=== PATIENT | male | born 1965 | race Caucasian/White ===

== ENCOUNTER 2017-03-19 12:09 | Emergency (ER) | payer MEDICARE ==
[~2017-03-19 12:09] MED LIST: BACTROBAN22 GM TOP; CUBICIN; FLEXERIL10 MG PO; IBUPROFEN PO; LORTAB 10-5001 EACH PO; NICOTINE P1 PATCH .2 TD; NICOTINE TRANSD21 MG EXT; NO HOME MEDS; NO MEDICATIONS; ORUDIS75 M1 PO; PERCOCET 10/3251 TAB PO; PERCOCET 5-3251 TAB PO; PREDNISONE PO; PROBIOTIC250 MG PO; STOOL SOFTENER1 EAC1 PO; VANCOMYCIN HCL1 GM IV; WALGREENS PHARM
== END 2017-03-19 15:18 | disposition home or self-care (01) ==
LOC: CFTX 12:09 → CED 12:09 → CFTX 14:44
DX: M54.5 Low back pain (principal); G89.29 Other chronic pain; F17.210 Nicotine dependence, cigarettes, uncomplicated
CPT/HCPCS: 96372; 99283; J1885

== ENCOUNTER 2017-03-22 00:36 | Inpatient (IN) | payer MEDICARE ==
--- NOTE | ~2017-03-22 | CO ---
Unit #: [id number] #: [id number] Patient: MAX ROBERTSON JR [id number] [facility] [address] [facility]. [place], [place] [address] [id number] I MR#: [id number] NAME: MAX ROBERTSON JR ROOM: 331 Age: 51 Sex: M Admission Date: 03/22/2017 : 1965 Attending Physician: Syd Abebe M.D. Primary Care Physician: Primary Care Physician No Consultation Date: 03/31/2017 CONSULTATION REPORT DISCUSSION Mr. Max Robertson is a 51-year-old male, seen in room 331, bed 1 on 03/31/2017 at [facility]. The patient dressed casually, lying comfortably in bed, withdrawn, isolative, flat affect. Made good eye contact, but seemed sad and depressed. Denied any suicidal ideation. Still having problem with the confusion and problem with memory. No agitation. The patient's vital signs; temperature 98.1, pulse 86, respirations 16, blood pressure 108/75, and oxygen saturation 100%. MENTAL STATUS EXAMINATION General appearance; the patient dressed in hospital attire, lying comfortably in bed. Attention span and concentration, poor. Speech, slow in volume with long pauses. Oriented in place and person. Mood and affect, sad and depressed. Thought process, circumstantial. Thought content, guarded and paranoid, but denied any thoughts of harming self or others, but very sad, depressed, withdrawn. Recent and remote memory, poor. Language, fair. Fund of knowledge, poor. Insight and judgment, fair to slightly impaired. DIAGNOSIS Psychiatric: Major depressive disorder, recurrent, severe, F33.2. ASSESSMENT/PLAN 1. Supportive psychotherapy and psychoeducation provided to the patient. 2. Educated about benefits and side effects of medication and course and prognosis of illness. 3. Advised to continue with current combination of medication, combination of Prozac and Zyprexa. If needed, consider further adjustment of medication. Please feel free to call if any questions, telephone #[phone]. Dictated by... Shahab Abrams M.D. ARLETH/brandon TD: 04/01/2017 23:06 JOB #: [id number] Unit #: [id number] #: [id number] Patient: MAX ROBERTSON JR CONSULTATION REPORT Page 1 of 1 X Shahab Abrams MD CONSULTATION REPORT
--- NOTE | ~2017-03-22 | CR7 ---
[facility] A Service of [facility] & [facility] RADIOLOGY TEXT RESULTS PATIENT: CELESTINA LAI JR LOCATION: [facility] 331-01 : [birth year] UNIT #: [id number] AGE: [address]: Syd Abebe MD SEX: M ORDER DR: [id number] [facility] [address] [facility]. [place], [place] [address] [id number] I MR#: [id number] Acc #: [id number] NAME: CELESTINA LAI : 1965 SEX: M STUDY DATE/TIME: 03/25/2017 21:07 UNIT: [facility] ROOM: [facility] STUDY DESCRIPTION: CR Abdomen Single AP View Attending Physician: Syd Abebe M.D. Ordering Physician: Syd Abebe M.D. Primary Care Physician: No Primary Care Physician MEDICAL IMAGING REPORT This report is preliminary unless electronic signature is present EXAM Portable abdomen 03/25/2017 HISTORY Feeding difficulty today, Dobbhoff tube placement. FINDINGS The tip of the Dobbhoff tube is in the region of the distal stomach Dictated by... Navid Isidro M.D. THIS IS AN ELECTRONICALLY VERIFIED REPORT Navid Isidro M.D. at 03/28/2017 8:27 AM TRINITY/missael TD: 03/26/2017 00:58 JOB #: [id number] MEDICAL IMAGING REPORT Page 1 of 1 COPY
--- NOTE | ~2017-03-22 | FU ---
[facility] Nutrition Therapy DATE: 03/31/17 Patient: CELESTINA LAI JR Physician: MARVIN Address: [address] [facility] Room/Bed: [address] [place] [address], Zip: [place] [address] Admit Date: 03/22/17 Date of : [birth year] Height: 5 10 Weight: 138 63 NUTRITION MONITORING/FOLLOW-UP: Reason: Nutrition follow up Anthropometrics: Wt: 63 kg Labs: Accuchecks 106-114 Meds: NaCl I&O's: 420/750, last BM 03/29 Skin: Right hip redness Bruise BUE No edema noted Diet: Dental soft/ ground meat/ NDD2 + NTL (with spoon) Assessment: Chart reviewed, events noted. FRONT DESK SUPERVISOR assessed the pt on 03/29 and diet was ordered per their recommendations (see above diet order). Pt's NG tube and enteral nutrition have been discontinued. Pt is only able to answer some questions, and is not appropriate for diet education at this time. Per RN and FLAT CUTTER report, the pt consumed minimal amount of breakfast, and only really wanted his mashed potatoes for lunch. RD will order Magic Cup supplements and follow up. Dx: Adequate enteral nutrition infusion- NO LONGER RELEVANT New Dx: Inadequate protein-energy intake RT decreased appetite AEB FLAT CUTTER and RN reported pt with poor intake today. Intervention: 1. Continue diet per FRONT DESK SUPERVISOR 2. Magic Cup TID Monitoring, Evaluation and Goals: 1. Oral intake; tolerate >50% of meals- NOT MET/ IN PROGRESS 2. Weight; maintain weight- IN PROGRESS 3. Labs; WNL- MET 4. GI; promote regular GI function- IN PROGRESS 5. Enteral nutrition; NO LONGER RELEVANT (ORAL DIET) [facility] Nutrition Therapy DATE: 03/31/17 Patient: CELESTINA LAI JR Physician: MARVIN Address: [address] [facility] Room/Bed: [address] [place] [address], Zip: [place] [address] Admit Date: 03/22/17 Date of : [birth year] Height: 5 10 Weight: 138 63 Recommendations: 1. Appreciate staff and family encouraging and assisting with nutritional intake as needed. 2. Magic Cup TID with meals for supplemental nutrition. 3. Continue FRONT DESK SUPERVISOR re-evaluation as needed to determine least- restrictive diet tolerated. Status: Mild-moderate nutritional risk. RD will continue to follow. Respectfully, GUILLERMO ABEBE RD, LD [facility] and [facility] cc: client file
--- NOTE | ~2017-03-22 | CO ---
Unit #: [id number] #: [id number] Patient: CELESTINA LAI JR [id number] [address] [place], [place] [address] [id number] I MR#: [id number] NAME: CELESTINA LAI ROOM: CIC2 Age: 51 Sex: M Admission Date: 03/22/2017 : 1965 Attending Physician: Syd Abeeb M.D. Primary Care Physician: Eliana Primary Care Physician Consultation Date: 03/23/2017 CONSULTATION REPORT Note - apparently patient was in the system before under another medical record number which was [id number]. REASON FOR CONSULT ICU management. HISTORY OF PRESENT ILLNESS This is a 51-year-old Cauc[place] male with a past medical history significant for MRSA osteomyelitis, intravenous drug abuse, COPD who presented to the emergency room via EMS after he was found down in his chair by his family. Per nursing staff, family reported that last time was seen in the same chair was two days prior to yesterday. The patient was unresponsive upon presentation but he was still breathing. He was transferred to the emergency room where his CT head didn't show any anoxic brain injury. However, it showed some changes that could be related to methanol or carbon monoxide poisoning. Patient was intubated, his vital signs were stable. Throughout the night, patient was moaning but he wasn't agonal. Upon my evaluation, patient was woken up and he responded to a couple questions. He is still oriented but he follows commands and he showed me thumbs up and he stuck his tongue out. He is moving all his extremities spontaneously with no focal weakness that I could see. His lips appear to have some facial drooping towards the left side. I am unsure what his baseline. PAST MEDICAL HISTORY 1. History of MRSA osteomyelitis. 2. COPD. 3. Depression. 4. History also of epidural abscess. 5. IV drug abuse. PAST SURGICAL HISTORY Multiple spinal surgeries. HOME MEDICATIONS Unavailable right now. SOCIAL HISTORY The patient, again, is an IV drug user. He smokes unknown amount and no reported history of alcoholism. FAMILY HISTORY Noncontributory. Unit #: [id number] #: [id number] Patient: CELESTINA LAI JR REVIEW OF SYSTEMS Twelve point review of systems were unable to be obtained as the patient is confused. PHYSICAL EXAMINATION GENERAL: The patient is moaning. He is following me with his eyes. VITAL SIGNS: Blood pressure 123/62, respiratory rate 17, O2 saturation 98% on room air. HEENT: Atraumatic, normocephalic. PERRLA, EOMI. NECK: Supple. No JVD, no lymphadenopathy. CHEST: Clear to auscultation bilaterally. HEART: S1, S2. No murmur, gallops or rubs. ABDOMEN: Soft, nontender. Bowel sounds positive. No hepatosplenomegaly. EXTREMITIES: No edema or cyanosis. SKIN: No rashes. PSYCHOLOGICAL ANTHROPOLOGIST: Patient apparently is awake, alert. He is tracking me with his eyes. He is showing me thumbs up in both hands and he is moving all of his extremities with no focal weakness. He is disoriented. DIAGNOSTIC STUDIES LABORATORY: Blood gas 7.40/32/72. Creatinine 1.0, sodium 140, white blood count 8.5, hemoglobin 11.7, platelets 273. IMAGING: Again, CT head is reviewed and is showing signs concerning for methanol or carbon monoxide poisoning. ASSESSMENT 1. Toxic metabolic encephalopathy. 2. Likely drug overdose. 3. Aspiration pneumonia. 4. History of methicillin resistant Staph aureus osteomyelitis. 5. Acute kidney injury. 6. Rhabdomyolysis. 7. Non-ST elevation myocardial infarction. 8. Chronic anemia. PLAN 1. The patient will be monitored in the ICU for the next 24 hours. Will continue patient on IV hydration and monitor urine output and Ck level. 2. Cancel MRI for now and reassess again later tomorrow if needed. 3. Continue broad spectrum antibiotics pending culture. 4. DVT prophylaxis. 5. Speech eval when he is more appropriate. I would like to thank Dr. Hua for allowing me to be part of this patient's care. Dictated by... Hortencia Tidwell M.D. EA/shasta Unit #: [id number] #: [id number] Patient: JOELLE NAYLORCELESTINA TD: 03/23/2017 10:41 JOB #: [id number] CONSULTATION REPORT Page 1 of 1 X HORTENCIA DAVENPORT MD X CONSULTATION REPORT
--- NOTE | ~2017-03-22 | CR7 ---
[facility] A Service of [facility] & [facility] RADIOLOGY TEXT RESULTS PATIENT: CELESTINA LAI JR LOCATION: [facility] 331-01 : 63 UNIT #: [id number] AGE: [address]: Syd Abebe MD SEX: M ORDER DR: [id number] [facility] [address] [facility]. [place], [place] [address] [id number] I MR#: [id number] Acc #: [id number] NAME: CELESTINA LAI : 1965 SEX: M STUDY DATE/TIME: 03/25/2017 20:26 UNIT: [facility] ROOM: [facility] STUDY DESCRIPTION: CR Abdomen Single AP View Attending Physician: Syd Abebe M.D. Ordering Physician: Syd Abebe M.D. Primary Care Physician: No Primary Care Physician MEDICAL IMAGING REPORT This report is preliminary unless electronic signature is present EXAM Portable abdomen, 03/25/17. HISTORY Feeding difficulty post invasive procedure Dobbhoff tube placement. FINDINGS The tip of the Dobbhoff tube is located in the region of the proximal stomach. Dictated by... Navid Isidro M.D. THIS IS AN ELECTRONICALLY VERIFIED REPORT Navid Isidro M.D. at 03/28/2017 8:27 AM TRINITY/saman TD: 03/26/2017 00:18 JOB #: [id number] MEDICAL IMAGING REPORT Page 1 of 1 COPY
--- NOTE | ~2017-03-22 | CR71 ---
[facility] A Service of [facility] & [facility] RADIOLOGY TEXT RESULTS PATIENT: CELESTINA LAI JR LOCATION: A 331-01 : 63 UNIT #: [id number] AGE: [address]: Syd Abebe MD SEX: M ORDER DR: [id number] [facility] [address] [facility]. [place], [place] [address] [id number] I MR#: [id number] Acc #: [id number] NAME: CELESTINA LAI JR : 1965 SEX: M STUDY DATE/TIME: 03/29/2017 6:08 UNIT: A U ROOM: [facility] STUDY DESCRIPTION: CR Chest Single View Attending Physician: Syd Abebe M.D. Ordering Physician: Williams Tidwell M.D. Primary Care Physician: Primary Care Physician No MEDICAL IMAGING REPORT This report is preliminary unless electronic signature is present EXAM Portable chest, 03/29/17 at 6:08 a.m. COMPARISON 03/28/17. CLINICAL HISTORY Follow up left pneumothorax with left chest tube in place. Weakness and short of air for 8 days. FINDINGS Left chest tube remains. Lungs well aerated without infiltrate. No pneumothorax. Dobbhoff type feeding tube present with distal tip below the diaphragm and not seen. Dictated by... Dwaine Moreno M.D. THIS IS AN ELECTRONICALLY VERIFIED REPORT Dwaine Moreno M.D. at 03/31/2017 4:28 PM TEV/pc TD: 03/29/2017 12:59 JOB #: [id number] MEDICAL IMAGING REPORT Page 1 of 1 COPY
--- NOTE | ~2017-03-22 | OR ---
Unit #: [id number] #: [id number] Patient: CELESTINA LAI JR [id number] [place] [address] [facility] [place] [facility]. [place], [place] [address] [id number] I MR#: [id number] NAME: CELESTINA LAI ROOM: [facility] Date of Procedure: 03/27/2017 Admission Date: 03/22/2017 Surgeon: Charlie Abernathy M.D. : 1965 Attending Physician: Syd Abebe M.D. Primary Care Physician: Eliana Primary Care Physician PROCEDURE OPERATIVE NOTE PREOPERATIVE DIAGNOSIS Pneumothorax. POSTOPERATIVE DIAGNOSIS Pneumothorax. PROCEDURE PERFORMED Left-sided chest tube insertion. ANESTHESIA INDICATION Pneumothorax. PROCEDURE After taking consent from the patient's family, explaining risks and benefits, the patient was placed in appropriate position. The left side of the chest was prepared with ChloraPrep in sterile fashion, as recent 3 cm incision was made after local anesthesia in the left fifth and sixth intercostal space and then with a blunt dissection, pleural cavity was entered and gastric repair was heard and then size 20 Korean chest tube was placed in the left pleural cavity with the help of a trocar and trocar was removed in total. The chest tube was hooked to the drainage system and to suction and was secured with one interrupted Silk suture in place. Patient tolerated procedure very well. No complication happened. Dictated by... Poly Mayfield/tiny TD: 03/28/2017 07:09 JOB #: [id number] Unit #: [id number] #: [id number] Patient: CELESTINA LAI JR PROCEDURE OPERATIVE NOTE Page 1 of 1 X Charlie Abernathy MD X PROCEDURE OPERATIVE NOTE
--- NOTE | ~2017-03-22 | HP ---
Unit #: [id number] #: [id number] Patient: CELESTINA LAI JR [id number] [address] [place], [place] [address] [id number] I MR#: [id number] NAME: CELESTINA LAI ROOM: CIC2 Age: 51 Sex: M Admission Date: 03/22/2017 : 1965 Attending Physician: Syd Abebe M.D. Primary Care Physician: No Primary Care Physician HISTORY AND PHYSICAL ADDENDUM DIAGNOSTIC STUDIES LABORATORY: Troponin is 0.18. RADIOLOGIC STUDIES DONE IN ER: Chest x-ray - No active disease. CT scan of the head without contrast was done, which shows oval low density areas affecting the globus pallidus bilaterally. This is typical of toxic response to carbon monoxide or possibly methanol. CT scan of the abdomen and pelvis was done, which shows Nguyễn catheter present, mild diffuse wall thickening, no abnormality of the bowel visible and postoperative changes of lumbar spine. ASSESSMENT AND PLAN 1. The patient is being admitted to ICU with the diagnosis of altered mental status. Patient was found unresponsive at home possibly in the same condition for 2 days or so. Etiology is unknown at this time. CT scan was done, which showed some changes that should be secondary to toxic response to carbon monoxide. MRI of the head has been ordered, still pending. Dr. Garcia has been consulted. EEG will be done. MRI of the spine is being done. The patient does have history of polysubstance abuse. There is always a question of drug overdose. 2. Elevated troponin. Cardiology has been consulted. There is a possibility of non-Q-wave elevated MD. Will do workup as recommended. 3. Elevated lactic acid, elevated WBC count, possible sepsis syndrome. Blood culture has been done. Preliminary antibiotics IV Zosyn and vancomycin are being started. Will continue to observe closely. Patient's blood pressure seems to be stable at this time. 4. Acute kidney injury. IV fluids are being started. Renal has been consulted. 5. Rhabdomyolysis, possibly secondary to unresponsive and found after some time. Continue to observe closely with hydration. 6. History of MRSA diskitis. MRI of the spine is being ordered. 7. I discussed with the patient's daughter and got some information. At this time we are going to consult neurology, cardiology and pulmonary. 8. Condition is poor. Dictated by Unit #: [id number] #: [id number] Patient: CELESTINA LAI JR, M.D. KN/db TD: 03/23/2017 13:07 JOB #: [id number] HISTORY AND PHYSICAL Page 1 of 1 X Vika Hua MD X HISTORY AND PHYSICAL
--- NOTE | ~2017-03-22 | CR72 ---
[facility] A Service of [facility] & [facility] RADIOLOGY TEXT RESULTS PATIENT: CELESTINA LAI JR LOCATION: [facility] 331-01 : 63 UNIT #: [id number] AGE: [address]: Syd Abebe MD SEX: M ORDER DR: [id number] [facility] [address] [facility] [place] [facility]. [place], [place] [address] [id number] I MR#: [id number] Acc #: [id number] NAME: CELESTINA LAI : 1965 SEX: M STUDY DATE/TIME: 03/22/2017 18:35 UNIT: [facility] ROOM: [facility] STUDY DESCRIPTION: CR Chest Single View Portable Attending Physician: Syd Abebe M.D. Ordering Physician: Vika Hua M.D. Primary Care Physician: No Primary Care Physician MEDICAL IMAGING REPORT This report is preliminary unless electronic signature is present EXAM Chest portable 03/22/2017 at 18:35 hours HISTORY 51-year-old man with altered mental status, shortness of air since yesterday. Evaluate for possible pneumonia. COMPARISON 03/22/2017 at 01:24 hours FINDINGS Two upright portable views of the chest demonstrate normal cardiac, mediastinal and hilar contours. There is hazy right midlung density which appears minimally more prominent than on the earlier film at 01:24 hours. This could represent an early focus of pneumonia or developing atelectasis. The lungs are otherwise clear. There is no effusion. There are old healed left rib fractures. IMPRESSION Mild hazy right upper lung density slightly increased from 0124 hours today on 1 of the 2 views which could represent developing pneumonia or atelectasis. The lungs are otherwise clear, and there are no effusions. STAT * RESULT Dictated by... Aline Marmolejo M.D. THIS IS AN ELECTRONICALLY VERIFIED REPORT Aline Marmolejo M.D. at 03/22/2017 8:02 PM [facility] A Service of [facility] & [facility] RADIOLOGY TEXT RESULTS PATIENT: CELESTINA LAI JR LOCATION: [facility] 331-01 : 63 UNIT #: [id number] AGE: [address]: Syd Abebe MD SEX: M ORDER DR: Rayray TD: 03/22/2017 18:54 JOB #: [id number] MEDICAL IMAGING REPORT Page 1 of 1 COPY
--- NOTE | ~2017-03-22 | DS ---
Unit #: [id number] #: [id number] Patient: CELESTINA LAI JR [id number] [address] [address] [id number] I MR#: [id number] NAME: CELESTINA LAI JR ROOM: 331 Age: 51 Sex: M Admission Date: 03/22/2017 : 1965 Discharge Date: 04/01/2017 Attending Physician: Syd Abebe M.D. Primary Care Physician: Eliana Primary Care Physician DISCHARGE SUMMARY DISCHARGE DIAGNOSES 1. Toxic metabolic encephalopathy. 2. Aspiration pneumonia status post completion of antibiotics. 3. Status post left pneumothorax. 4. Elevated troponin status post cardiology evaluation; stable for discharge. 5. Status post acute kidney injury. 6. Rhabdomyolysis, resolved. 7. Low-grade fever, resolved more than 24 hours. 8. History of methicillin-resistant Staphylococcus aureus osteomyelitis in the past. 9. History of intravenous drug abuse in the past. 10. History of spinal stenosis. 11. History of depression. CONSULTS ON THIS HOSPITAL STAY 1. Dr. Carreon, cardiology. 2. Dr. Aebrnathy and Dr. Tidwell, intensive care. 3. Dr. Mario Tidwell, nephrology. 4. Dr. Garcia, neurology. 5. Dr. Abrams, psychiatry. PROCEDURES Left chest tube placement per Dr. Abernathy. DIAGNOSTIC STUDIES IMAGING: Chest x-ray on admission - No active disease. CT head on admission - Low density areas affecting globus pallidus bilaterally, typical of toxic response to carbon monoxide or possibly methanol. CT abdomen and pelvis - No abnormality. Lumbar MRI - No obvious drainable abscess, some surgical changes, inflammatory changes of posterior paraspinal muscles. MRI of the brain - Scattered multiple areas of restricted diffusion noted particularly in bilateral globus pallidi, bilateral occipital lobes, particularly on the left, white matter along the cortical spinal tract of the posterior and superior frontal lobe extending from the cortex towards the whyte radiata. Punctate 2 or 3 other less than 5 mm restricted diffusion lesions in the left frontal, right parietal subcortical white matter in the setting of possible poisoning, IV drug use, recreational Unit #: [id number] #: [id number] Patient: CELESTINA LAI JR drug use. Other differential considerations include poisoning with carbon monoxide and other toxins, also hypoglycemia, hemolytic uremic syndrome, and other metabolic conditions. Hypoxic ischemic encephalopathy can be considered in the appropriate clinical setting. With a history of IV drug abuse related issues, it is in keeping with that primarily. Patient had multiple abdominal x-rays; the last one showed Dobbhoff tube in the region of the distal stomach. Last chest x-ray from April 01 - Tiny left apical pneumothorax; otherwise, unremarkable. Chest tube had been removed. LABORATORY: Blood culture on admission to this date negative, the second. The first one was growing Staphylococcus species, coagulase negative, probable skin contaminant. Stool for occult blood was positive from March 23; however, discharge date H and H are 15.4 and 46.5. Urine culture negative. DISCHARGE MEDICATIONS 1. Fluoxetine 10 mg q.h.s.. 2. Zyprexa 5 mg at bedtime. 3. Tylenol 650 p.o. q.4 hours p.r.n. fever or pain. HISTORY OF PRESENT HOSPITAL STAY AND ACTIVE PROBLEMS Altered mental status. Status post neurology evaluation. Initially was maintained in ICU. Please see neurology consult notes. Workup as above. Currently, it is considered secondary to toxic metabolic encephalopathy secondary to polysubstance abuse. Current mental status is improved. However, the patient tends to have flat affect. The patient, also, has been evaluated by psychiatry. Continue current Zyprexa and Prozac. Outpatient followup with psychiatry. Aspiration pneumonia. Status post pulmonary evaluation. Was treated with antibiotics. Status post completion of antibiotics. Procalcitonin level at the time of discharge is less than 0.05. Low-grade fever. Resolved. Fever-free for more than 24 hours. Status post left pneumothorax. Status post chest tube placement and then removal. Stable per pulmonary. Last chest x-ray as above. Stable for discharge. Elevated troponin status post cardiology evaluation. Stable from cardiology standpoint. Status post acute kidney injury and rhabdomyolysis, resolved. Discharge day BUN and creatinine 18 and 0.8. DISPOSITION Going to subacute rehab. FOLLOW-UP 1. Follow up with Dr. Cole at the rehab. 2. Outpatient followup with psychiatry. Dictated by... Unit #: [id number] #: [id number] Patient: CELESTINA LAI JR, M.D. OC/db TD: 04/02/2017 08:26 JOB #: [id number] DISCHARGE SUMMARY Page 1 of 1 X Syd Abebe MD DISCHARGE SUMMARY
--- NOTE | ~2017-03-22 | MR18 ---
[facility] A Service of [facility] & [facility] RADIOLOGY TEXT RESULTS PATIENT: CELESTINA LAI JR LOCATION: C3A 331-01 : 63 UNIT #: [id number] AGE: [address]: Syd Abebe MD SEX: M ORDER DR: [id number] [facility] [address] [place], [place] [address] [id number] I MR#: [id number] Acc #: [id number] NAME: CELESTINA LAI JR : 1965 SEX: M STUDY DATE/TIME: 03/23/2017 22:48 UNIT: [facility] ROOM: [facility] STUDY DESCRIPTION: MR Brain Wo Contrast Attending Physician: Syd Abebe M.D. Ordering Physician: Syd Abebe M.D. Primary Care Physician: No Primary Care Physician MRI CENTER REPORT This report is preliminary unless electronic signature is present. EXAM MRI of the brain without contrast dated 03/23/2017. COMPARISON CT head without contrast dated 03/22/2017. HISTORY Altered mental status. Possible accidental poisoning through IV drug use. Patient was found unresponsive sitting in a chair possibly for 2 days. History of prior MRSA diskitis and spinal osteomyelitis with severe spinal stenosis. History of back surgery in 2016. Patient is unable to give history at this time. FINDINGS Multisequence, multiplanar imaging of the brain was obtained without contrast. Motion artifact is noted in multiple sequences limiting evaluation. Restricted diffusion multiple lesions are noted in bilateral globus pallidi, bilateral posterior frontal cortical and subcortical white matter along the convexity extending anteriorly from the centrum semiovale towards the whyte radiata, a few less than 5 mm restricted diffusion lesions in the left frontal, right inferior parietal white matter, left occipital cortex and adjacent subcortical white matter of the calcarine region, and a tiny one in the posteromedial right occipital cortex, bilateral occipital periventricular white matter. The lesions are predominantly in the supratentorial region and is most prominent in bilateral globus pallidi. The michelle and the dentate nuclei are relatively preserved. No hydrocephalus, obvious hemorrhage, or midline shift. These lesions have associated increased T2 signal. There is moderate left maxillary sinus mucosal thickening. Nasal septum is deviated to the left. Thick slices through the sella with the pituitary gland, pineal region, and upper cervical spine are within normal limits. [facility] A Service of [facility] & [facility] RADIOLOGY TEXT RESULTS PATIENT: CELESTINA LAI JR LOCATION: C3A 331-01 : 63 UNIT #: [id number] AGE: [address]: Syd Abebe MD SEX: M ORDER DR: IMPRESSION There are scattered multiple areas of restricted diffusion noted particularly in bilateral globus pallidi, bilateral occipital lobes, particularly on the left, white matter along the cortical spinal tract of the posterior and superior frontal lobe extending from the cortex towards the whyte radiata and punctate 2 or 3 other less than 5 mm restricted diffusion lesions in the left frontal, right parietal subcortical white matter. These in the setting of possible poisoning IV drug use, recreational drug use. Other differential considerations include poisoning with carbon monoxide and other toxins, hypoglycemia, hemolytic uremic syndrome, and other metabolic conditions. Hypoxic ischemic encephalopathy can be considered in the appropriate clinical setting. With a history of IV drug abuse related issues, it is in keeping with that primarily. Followup MRI brain can be obtained to evaluate for its progression. Dictated by... Franklin Doyle M.D. THIS IS AN ELECTRONICALLY VERIFIED REPORT Franklin Doyle M.D. at 03/24/2017 6:06 PM CPR/tmw TD: 03/24/2017 11:55 JOB #: [id number] MRI CENTER REPORT Page 1 of 1 COPY
--- NOTE | ~2017-03-22 | CR72 ---
[facility] A Service of [facility] & [facility] RADIOLOGY TEXT RESULTS PATIENT: CELESTINA LAI JR LOCATION: [facility] 331-01 : 63 UNIT #: [id number] AGE: [address]: Syd Abebe MD SEX: M ORDER DR: [id number] [facility] [address] [place], [place] [address] [id number] I MR#: [id number] Acc #: [id number] NAME: CELESTINA LAI : 1965 SEX: M STUDY DATE/TIME: 03/27/2017 8:38 UNIT: [facility] ROOM: [facility] STUDY DESCRIPTION: CR Chest Single View Portable Attending Physician: Syd Abebe M.D. Ordering Physician: Syd Abebe M.D. MEDICAL IMAGING REPORT This report is preliminary unless electronic signature is present EXAM Portable chest INDICATIONS Status post chest tube placement. COMPARISON STUDIES Comparison with earlier today. FINDINGS Interval placement of a left chest tube with decrease in size of the left pneumothorax, now with only small apical and basilar components. The exam is otherwise unchanged. IMPRESSION Interval placement of a left chest tube with decrease in size of left pneumothorax. Dictated by... Charles Rojo M.D. THIS IS AN ELECTRONICALLY VERIFIED REPORT Charles Rojo M.D. at 03/28/2017 7:50 AM ARS/pcl TD: 03/27/2017 13:29 JOB #: [id number] MEDICAL IMAGING REPORT Page 1 of 1 COPY
--- NOTE | ~2017-03-22 | CR7 ---
[facility] A Service of [facility] & [facility] RADIOLOGY TEXT RESULTS PATIENT: CELESTINA LAI JR LOCATION: [facility] 331-01 : 63 UNIT #: [id number] AGE: [address]: Syd Abebe MD SEX: M ORDER DR: [id number] [facility] [address] [place], [place] [address] [id number] I MR#: [id number] Acc #: [id number] NAME: CELESTINA LAI : 1965 SEX: M STUDY DATE/TIME: 03/24/2017 19:00 UNIT: [facility] ROOM: [facility] STUDY DESCRIPTION: CR Abdomen Single AP View Attending Physician: Syd Abebe M.D. Ordering Physician: Syd Abebe M.D. Primary Care Physician: Primary Care Physician No MEDICAL IMAGING REPORT This report is preliminary unless electronic signature is present EXAM Abdominal radiograph INDICATIONS Dobbhoff tube placement. PROCEDURE Supine view of the abdomen. COMPARISON 03/24/2017 at 1331 hours FINDINGS Tip of the Dobbhoff tube is at the fundus of the stomach. IMPRESSION Tip of the tube at the fundus of the stomach. Suggest more distal advancement prior to using. Dictated by... Oh Zambrano M.D. THIS IS AN ELECTRONICALLY VERIFIED REPORT Oh Zambrano M.D. at 03/25/2017 9:30 AM EED/psc TD: 03/24/2017 21:22 JOB #: [id number] MEDICAL IMAGING REPORT Page 1 of 1 COPY
--- NOTE | ~2017-03-22 | CO ---
Unit #: [id number] #: [id number] Patient: CELESTINA ROBERTSON JR [id number] [address] [place], [place] [address] [id number] I MR#: [id number] NAME: CELESTINA ROBERTSON JR ROOM: [facility] Age: 51 Sex: M Admission Date: 03/22/2017 : 1965 Attending Physician: Syd Abebe M.D. Consultation Date: 03/23/2017 CONSULTATION REPORT REASON FOR CONSULTATION Mildly elevated troponin. HISTORY OF PRESENT ILLNESS This is a 51-year-old white male with a known history of IV drug abuse, polysubstance abuse, alcohol and nicotine abuse, hypertension, anemia, COPD, had last year MRSA diskitis and spinal osteomyelitis with epidural abscess and severe spinal stenosis, who was at [facility] and then went to [place] for a while. He was brought in by EMS after family found him poorly responsive. The patient is unable to answer questions due to his altered mental status and there is no family at the bedside at this time. Information is obtained from the medical records, chart, and staff. According to the information, the patient was found up in a recliner. He had been seen 2 days prior to that in the same recliner. They feel that he may have been sitting in that recliner for the entire 2 days. According to information from my chart, I talked to the patient's daughter and she could not give any specifics of him using any substance abuse or anything of that nature. EMS was called and he was still breathing. He was well in the emergency room. CAT scan was done, which did not show any anoxic injury and did show some changes that could be secondary to methanol or carbon monoxide poisoning. The patient's initial labs, his BUN was 39, creatinine 1.4. His ABGs showed pH is 7.407, pCO2 of 32.4, pO2 of 72.1. His CK total was 1553. Alcohol level less than 5. Lactic acid 2.6. Initial cardiac enzymes, CK-MB was 31.2 with troponin 0.18 and troponin 0.17. This morning, his troponin 0.19 and 0.15. BNP is 204. WBCs 8.5, hemoglobin 11.7, and platelets 273. Urine tox screen is positive for opioids and tricyclics. The patient's EKG showed normal sinus rhythm and no acute ischemic changes. Cardiology has been consulted to assist with evaluation and management. PAST MEDICAL HISTORY 1. History of IV drug abuse and polysubstance abuse. 2. Alcohol abuse. 3. Nicotine abuse. 4. History of MRSA diskitis, spinal osteomyelitis, epidural abscesses, and severe spinal stenosis. Dr. Mckeon was a surgeon in 2005 at [facility]. 5. Hypertension. 6. Depression. 7. History of anemia. 8. COPD. 9. 05/29/2016, 2D echo shows LVEF of 60% with normal valves. Unit #: [id number] #: [id number] Patient: CELESTINA ROBERTSON JR PAST SURGICAL HISTORY 1. Back surgery back in [address] Mckeon. 2. Lumbar spine surgery. HOME MEDICATIONS None reported. ALLERGIES No known drug allergies. SOCIAL HISTORY According to information obtained, his daughter lives with him except the daughter had not been home for couple days. He continues to smoke a few cigarettes a day. He has a history of polysubstance abuse and a family member mentioned that he may be likely has some synthetic drugs. FAMILY HISTORY Unknown. REVIEW OF SYSTEMS See details in HPI. PHYSICAL EXAMINATION GENERAL: Mr. Robertson is a 51-year-old white male. He is on oxygen 2 L. He has nonpurposeful movement. He does open his eyes and he is moaning. He answered a couple of simple yes and no questions earlier in the morning. NECK: Trachea midline. No thyromegaly or lymphadenopathy. Normal carotid upstrokes. No jugular venous distention. HEART: S1, S2. Regular rate and rhythm. No clicks, murmurs, or rubs. LUNGS: Very diminished. ABDOMEN: Soft, nontender. EXTREMITIES: Pedal pulses are palpable. No pedal edema. DIAGNOSTIC STUDIES LABORATORY RESULTS: ABG, pH is 7.407, pCO2 of 32.4, pO2 of 72.1, HCO3 of 20.3, FiO2 is 21. Glucose is 67, BUN 14, creatinine 1.0, eGFR is 86.2, sodium 140, potassium 3.9, chloride 109, CO2 of 25, calcium is 8.2, magnesium is 2.7, total protein 7.4, albumin 3.4, bilirubin total 0.7, AST 101, ALT 86, alkaline phosphatase is 146. BNP is 204. Ammonia level 16. Lactic acid is 2.6. Alcohol level less than 5. WBCs 8.5, hemoglobin 11.7, hematocrit 35.3, and platelets 273. Initial cardiac enzymes; CK-MB is 31.2, troponin is 0.18; CK-MB is 21.9, troponin 0.17. INR is 1.2. CK total is 1553, MB is 13.8, percentage of MB 0.9, and troponin is 0.19. CK is 1126 down from 2695. BNP is 205. INR is 1.2. WBCs 8.5, hemoglobin 11.7, hematocrit 34.3, and platelets 273. Urine tox screen is positive for opioids and tricyclics, wbc's, 1+ leukocyte esterase, 1.0 urobilinogen. IMAGING STUDIES: Chest x-ray shows no active disease. CT of the head without contrast shows oval low-density infecting the globus pallidus bilaterally. This could be toxic response to carbon monoxide or possibly methanol. CT of the abdomen and pelvis, some mild diffuse wall thickening. Otherwise, unremarkable. CARDIOVASCULAR STUDIES: EKG shows normal sinus rhythm with short ND, ventricular rate 83 beats per minute, nonspecific changes. IMPRESSION 1. Altered mental status. Unit #: [id number] #: [id number] Patient: CELESTINA ROBERTSON JR 2. Diarrhea. 3. Mildly elevated troponin. 4. History of hypertension. 5. Rhabdomyolysis. 6. Mild anemia, questionable gastrointestinal bleed. 7. Chronic obstructive pulmonary disease. 8. Left ventricular ejection fraction of 60% on 2D echo on 05/29/2016, normal valves. 9. History of methicillin-resistant Staphylococcus aureus diskitis and spinal osteomyelitis with epidural abscess. 10. Severe spinal stenosis. 11. Alcohol, polysubstance, and nicotine abuse. PLAN 1. Cardiology consult to assist with evaluating the patient's mildly elevated troponin. Troponin of less than 0.5 is not indicative of acute coronary syndrome. We will continue to monitor. After evaluating for possible GI bleed, the patient has had a lot of loose stools today and a smell suspicion of may be a GI bleed. We will guaiac his stools and evaluate. 2. We will continue to monitor cardiac enzymes and EKG. Obtain a fasting lipid profile and TSH and evaluate. 3. Neurology is going to see the patient and evaluate. Neurology is managing the patient also. They wanted MRI of the brain and evaluate carbon and hemoglobin level. The patient's symptoms may be from hypoxia or possible infection, so we will monitor closely. 4. On exam, there are no signs or symptoms of acute congestive heart failure. 5. When the patient is more alert, we will try to discuss with him polysubstance cessation along with alcohol and tobacco cessation. 6. Further recommendations pending per Dr. Dodd. Thank you very much for allowing us to assist in care. Dictated by... Freddy Dutton/brandon TD: 03/24/2017 09:41 JOB #: [id number] CONSULTATION REPORT Page 1 of 1 X Katheryn Sauer APRN X CONSULTATION REPORT
--- NOTE | ~2017-03-22 | MR113 ---
[facility] A Service of [facility] & [facility] RADIOLOGY TEXT RESULTS PATIENT: CELESTINA LAI JR LOCATION: A 331-01 : 63 UNIT #: [id number] AGE: [address]: Syd Abebe MD SEX: M ORDER DR: [id number] [facility] [address] [place], [place] [address] [id number] I MR#: [id number] #: [id number] NAME: CELESTINA LAI JR : 1965 SEX: M STUDY DATE/TIME: 03/23/2017 22:48 UNIT: [facility] ROOM: [facility] STUDY DESCRIPTION: MR Lumbar Wo Contrast Attending Physician: Syd Abebe M.D. Ordering Physician: Syd Abebe M.D. Primary Care Physician: Primary Care Physician No MRI CENTER REPORT This report is preliminary unless electronic signature is present. EXAM MRI of the lumbar spine without contrast, 03/23/2017 COMPARISON MRI of the lumbar spine with and without contrast, 06/24/2016 HISTORY Patient was found unresponsive when sitting in a chair possibly for two days. History of MRSA discitis and spine osteomyelitis. Severe canal stenosis. History of prior surgery in 2016. The patient is not able to give any more history. FINDINGS Multi-sequence, multiplanar imaging of the lumbar spine was obtained without contrast. Significant motion artifact limits evaluation. There are postoperative changes with metallic artifact extending from L3 to S1. The bipedicular screws at L3 appear to be relatively new. The bipedicular screws at L4 have been removed. Correlate with operative note. Decreased T2 signal change is noted involving most of L4 and L5 vertebral body with some involvement of L3. The edematous changes were also noted in the previous study from 06/24/2016. The edema appears to have decreased based on the STIR sequences. Given the motion it is hard to fully correlate. There is intervertebral disc prosthesis noted at L3-4, L4-5 levels. Increased T2 signal is seen at L5-S1 disc space where it is of lesser intensity when compared to the prior MRI. Contrast was not administered due to significant motion artifact limiting evaluation of abscesses. The increased T2 signal noted along the anterolateral aspect of L5-S1 paraspinal muscles in the right side is not as well seen in the current study after giving allowances to motion artifact. No significant new abnormality is discerned in the current study. Very limited study due to motion. [facility] A Service of [facility] RADIOLOGY TEXT RESULTS PATIENT: CELESTINA LAI JR LOCATION: C3A 331-01 : 63 UNIT #: [id number] AGE: [address]: Syd Abebe MD SEX: M ORDER DR: L1-2: Unremarkable. L2-3: Mild concentric disc bulge with borderline size canal. No neural foraminal narrowing. L3-4: Intervertebral disc spacer is seen without any significant neural foraminal narrowing or canal stenosis. L4-5: Intervertebral disc spacer is seen without any significant canal stenosis. Soft tissues extending into the right foraminal region causes moderate to severe suspicious neural foraminal narrowing. Mild left neural foraminal narrowing is seen with relatively patent thecal sac. Nerve roots of the cauda equina adherent to the periphery of the sac from the level of upper L4 inferiorly suspicious for arachnoiditis. No nodular nerve root thickening is seen. L5-S1: Postoperative changes are noted. Previously mentioned possible abscess collection is not clearly seen in the current study without contrast. Mild bilateral inferior neural foraminal encroachment cannot be excluded but there is no significant narrowing. Canal is patent. IMPRESSION 1. Motion artifact significantly limits evaluation. 2. Previously noted significant increased T2 signal within the discs at L5-S1 and L3-4 are not as well seen in the current sequences. There is no obvious drainable abscess noted in the current limited study due to motion and lack of contrast. 3. There appear to have been interval surgical changes with bipedicular L3 screw placement and removal of bilateral L4 screws. 4. Inflammatory changes are noted within the posterior paraspinal muscles of the mid to lower back which could be postoperative granulation tissue. It cannot be further characterized without contrast. 5. The nerve roots of the cauda equina are noted along the periphery of the thecal sac from the level of L4 extending to L5 suggestive of arachnoiditis. Relatively stable. Dictated by... Chithra Sharon Vivek, M.D. THIS IS AN ELECTRONICALLY VERIFIED REPORT Franklin Doyle M.D. at 03/24/2017 6:06 PM STEVE/cheng TD: 03/24/2017 10:55 JOB #: [id number] MRI CENTER REPORT Page 1 of 1 COPY
--- NOTE | ~2017-03-22 | EKG ---
PATIENT: CELESTINA LAI UNIT #: [id number] Ventricular Rate: 65 BPM Atrial Rate: 65 BPM P-R Interval: 152 ms QRS Duration: 86 ms Q-T Interval: 442 ms QTC Calculation(Bezet): 459 ms P Milton: 56 degrees Calculated R Milton: 78 degrees Calculated T Milton: 74 degrees Diagnosis Line: Normal sinus rhythm Diagnosis Line: Normal ECG Diagnosis Line: When compared with ECG of 22-MAR-2017 18:19, Diagnosis Line: No significant change was found Diagnosis Line: Confirmed by CASEY FRANCES MD ([id number]) on Diagnosis Line: 03/25/2017 3:38:55 PM INTERPRETING MD: GISELL
--- NOTE | ~2017-03-22 | CO ---
Unit #: [id number] #: [id number] Patient: MAX ROBERTSON JR [id number] [address] [place], [place] [address] [id number] MR#: [id number] NAME: MAX ROBERTSON JR ROOM: 331 Age: 51 Sex: M Admission Date: 03/22/2017 : 1965 Attending Physician: Syd Abebe M.D. Consultation Date: 03/29/2017 CONSULTATION REPORT REASON FOR CONSULTATION Altered mental status, confusion, delirium. HISTORY OF PRESENT ILLNESS Max Robertson junior is a 51-year-old male, who was seen on 03/29/2017. The patient was initially admitted on 03/22/2017. The patient's family was in the room, reported the patient has shown improvement but still confused, unable to give any reliable information. The patient was initially treated in ICU, admitted with altered mental status. The patient was found unresponsive at home, which condition may have lasted for [address] scan was done and showed changes secondary to toxic response to carbon monoxide. EEG and MRI were also done. The patient has a history of polysubstance abuse. There was a questionable history of abuse of drugs. The patient also had rhabdomyolysis on admission. The patient was able to answer short questions, able to recognize family member, but unable to give any reliable information, no agitation. The patient has a history of depression and substance abuse. On admission, the patient's toxicology report was positive for opioids. PAST PSYCHIATRIC HISTORY Remarkable for history of depression and substance abuse, details unknown at this time. MEDICAL HISTORY History of MRSA osteomyelitis, COPD, depression, IV drug abuse in the past, spinal stenosis, tobacco abuse. MEDICATIONS The patient is currently on Lovenox . FAMILY HISTORY AND SOCIAL HISTORY The patient has a good support system from family. No history of abuse. History of substance abuse as mentioned above. REVIEW OF SYSTEMS Complete review of system is unremarkable. MENTAL STATUS EXAMINATION Vital signs; temperature 98.8, pulse 80, respirations 18, blood pressure 129/90, and oxygen saturation 100%. General appearance; the patient is thin built, lying comfortably in bed, receiving IV. Attention span and concentration, poor. Speech, minimal. Orientation in self. Mood and affect, labile. Thought process, circumstantial. Thought content, denied any thoughts of harming self or others, but somewhat guarded. Recent and Unit #: [id number] #: [id number] Patient: MAX ROBERTSON JR remote memory, poor. Language, fair. Fund of knowledge, impaired. Insight and judgment, impaired. DIAGNOSES Psychiatric: Delirium, F05; psychosis, not otherwise specified, F29.0; major depressive disorder, recurrent, severe, F33.2; history of polysubstance abuse; opioid use disorder, F11.20. Secondary diagnosis: Deferred. Medical diagnosis: Please refer to H and P. Stressors: Psychosocial stressors. ASSESSMENT/PLAN 1. Supportive psychotherapy and psychoeducation provided to the patient and family, but the patient unable to comprehend much. 2. Advised to continue with current medication with a plan to consider medication for mood symptom and depression such as Zyprexa. We will continue to follow. Please feel free to call if any questions, telephone #[phone]. Dictated by... Poly Bishop/brandon TD: 03/30/2017 00:30 JOB #: [id number] CONSULTATION REPORT Page 1 of 1 X Shahab Abrams MD X CONSULTATION REPORT
--- NOTE | ~2017-03-22 | EKG ---
PATIENT: CELESTINA LAI UNIT #: [id number] Ventricular Rate: 83 BPM Atrial Rate: 83 BPM P-R Interval: 108 ms QRS Duration: 70 ms Q-T Interval: 384 ms QTC Calculation(Bezet): 451 ms P [place]: 66 degrees Calculated R [place]: 72 degrees Calculated T [place]: 71 degrees Diagnosis Line: Sinus rhythm with short MN Diagnosis Line: Borderline ECG Diagnosis Line: When compared with ECG of 22-MAR-2017 01:37, Diagnosis Line: (unconfirmed) Diagnosis Line: No significant change was found Diagnosis Line: Confirmed by YOUSIF HAYES MD ([id number]) on 03/23/2017 Diagnosis Line: 7:40:08 AM INTERPRETING MD: ABIGAIL MAZARIEGOS
--- NOTE | ~2017-03-22 | CR72 ---
[facility] A Service of [facility] & [facility] RADIOLOGY TEXT RESULTS PATIENT: CELESTINA LAI JR LOCATION: [facility] 331-01 : 63 UNIT #: [id number] AGE: [address]: Syd Abebe MD SEX: M ORDER DR: [id number] [facility] [address] [place], [place] [address] [id number] I MR#: [id number] Acc #: [id number] NAME: CELESTINA LAI JR : 1965 SEX: M STUDY DATE/TIME: 03/22/2017 1:24 UNIT: [facility] ROOM: [facility] STUDY DESCRIPTION: CR Chest Single View Portable Attending Physician: Syd Abebe M.D. Ordering Physician: Sangeetha Gary M.D. Primary Care Physician: No Primary Care Physician MEDICAL IMAGING REPORT This report is preliminary unless electronic signature is present EXAM Portable chest. INDICATION Shortness of air, weakness, unresponsive tonight. TECHNIQUE Portable view of the chest was obtained. FINDINGS Heart size and vascularity are normal. The lungs are clear. Bones are unremarkable. IMPRESSION No active disease. Dictated by... Mac Giraldo M.D. THIS IS AN ELECTRONICALLY VERIFIED REPORT Mac Giraldo M.D. at 03/22/2017 1:21 PM FEL/gz TD: 03/22/2017 10:26 JOB #: [id number] MEDICAL IMAGING REPORT Page 1 of 1 COPY
--- NOTE | ~2017-03-22 | CO ---
Unit #: [id number] #: [id number] Patient: CELESTINA LAI JR [id number] [address] [place], [place] [address] [id number] I MR#: [id number] NAME: CELESTINA LAI [facility] Age: 51 Sex: M Admission Date: 03/22/2017 : 1965 Attending Physician: Syd Abebe M.D. Primary Care Physician: No Primary Care Physician Consultation Date: 03/22/2017 CONSULTATION REPORT REASON FOR CONSULTATION Elevated creatinine level. The patient is a 51-year-old male with previous history of MRSA osteomyelitis, IV drug use, COPD, was found in the chair by the family. Reportedly had been in the same position for at least two days. The patient was poorly responsive but was spontaneously breathing. He was brought to the emergency room and patient was noted to have a creatinine level of 1.4 with an elevated CK level of about 3000. The urinalysis was negative for blood and urine drug screen was positive for opiates and TCA. The lactic acid was elevated at 2.6 with a BNP of 204. PAST MEDICAL HISTORY Significant for: 1. MRSA osteomyelitis. 2. COPD. 3. Depression. 4. History of epidural abscess and intravenous drug use. PAST SURGICAL HISTORY Significant for spinal surgery in the past. SOCIAL HISTORY The patient has a history of intravenous drug use. FAMILY HISTORY Unremarkable for end stage renal disease. REVIEW OF SYSTEMS Not currently available. PHYSICAL EXAMINATION VITAL SIGNS: Patient's blood pressure is 123/62 with heart rate of 104/minute, saturation of 98%. HEENT: Head was atraumatic. Extraocular movements are intact. NECK: Supple. No elevation of JVD. CHEST: Decreased air entry in the bases. HEART: S1, S2 audible. No S3, no S4. ABDOMEN: Soft. There is no organomegaly, no guarding, no rigidity, no rebound tenderness, no edema. IMPRESSION 1. Acute kidney injury, at risk of rhabdomyolysis due to prolonged immobilization: Recheck the CK level, hydrate and also alkalinize Unit #: [id number] #: [id number] Patient: CELESTINA LAI JR the urine. Unlikely ATN. Will check on that. 2. Metabolic encephalopathy. 3. Possible pneumonia. 4. Mild rhabdomyolysis. 5. Elevated troponin level, possible non-ST elevation myocardial infarction. 6. Defer antibiotics to critical care who will follow the patient. Dictated by... Poly Antunez TD: 03/23/2017 12:14 JOB #: [id number] CONSULTATION REPORT Page 1 of 1 X Mario Tidwell MD X CONSULTATION REPORT
--- NOTE | ~2017-03-22 | CR7 ---
[facility] A Service of [facility] & [facility] RADIOLOGY TEXT RESULTS PATIENT: CELESTINA LAI JR LOCATION: A 331-01 : [birth year] UNIT #: [id number] AGE: [address]: Syd Abebe MD SEX: M ORDER DR: [id number] [facility] [address] [facility]. [place], [place] [address] [id number] I MR#: [id number] Acc #: [id number] NAME: CELESTINA LAI : 1965 SEX: M STUDY DATE/TIME: 03/24/2017 13:34 UNIT: [facility] ROOM: [facility] STUDY DESCRIPTION: CR Abdomen Single AP View Attending Physician: Syd Abebe M.D. Ordering Physician: Syd Abebe M.D. Primary Care Physician: No Primary Care Physician MEDICAL IMAGING REPORT This report is preliminary unless electronic signature is present EXAM Abdomen single view 03/24/2017 13:34 hours HISTORY Dobbhoff tube placement today. COMPARISON None. FINDINGS Limited view of the left abdomen is performed. The right flank and pelvis are excluded. There is a Dobbhoff tube in the left upper quadrant directed leftward in the fundus of the stomach. Bowel gas pattern is unremarkable. Hardware is present in the lower lumbar spine. IMPRESSION Limited film confirms the tip of the Dobbhoff tube in the left upper quadrant directed leftward within the stomach at the fundus. Dictated by... Aline Marmolejo M.D. THIS IS AN ELECTRONICALLY VERIFIED REPORT Aline Marmolejo M.D. at 03/25/2017 9:27 AM Rayray TD: 03/24/2017 14:46 JOB #: [id number] MEDICAL IMAGING REPORT Page 1 of 1 COPY
--- NOTE | ~2017-03-22 | CR63 ---
[facility] A Service of [facility] RADIOLOGY TEXT RESULTS PATIENT: CELESTINA LAI JR LOCATION: [facility] 331-01 : [birth year] UNIT #: [id number] AGE: [address]: Syd Abebe MD SEX: M ORDER DR: [id number] [facility] [address] [facility]. [place], [place] [address] [id number] I MR#: [id number] Acc #: [id number] NAME: CELESTINA LAI : 1965 SEX: M STUDY DATE/TIME: 04/01/2017 7:05 [facility]: [facility] STUDY DESCRIPTION: CR Chest 2 View Attending Physician: Syd Abebe M.D. Ordering Physician: Syd Abebe M.D. Primary Care Physician: No Primary Care Physician MEDICAL IMAGING REPORT This report is preliminary unless electronic signature is present EXAM PA and lateral chest. INDICATIONS Pneumonia and shortness of breath for 3 days. COMPARISON 03/29/2017 FINDINGS Removal of the chest tube from the left. Tiny left apical pneumothorax. No new infiltrates. Heart size stable. IMPRESSION The left chest tube has been removed. There is a tiny left apical pneumothorax. Dictated by... Charles Rojo M.D. JADE/ernie TD: 04/01/2017 12:29 JOB #: [id number] MEDICAL IMAGING REPORT Page 1 of 1
--- NOTE | ~2017-03-22 | HP ---
Unit #: [id number] #: [id number] Patient: CELESTINA LAI JR [id number] [address] [place], [place] [address] [id number] I MR#: [id number] NAME: CELESTINA LAI ROOM: [facility] Age: 51 Sex: M Admission Date: 03/22/2017 : 1965 Attending Physician: Syd Abebe M.D. Primary Care Physician: No Primary Care Physician HISTORY AND PHYSICAL CHIEF COMPLAINT Unresponsive. HISTORY OF PRESENT ILLNESS 51-year-old male who is well known to us from previous admissions. He was admitted in May 2016 when he was diagnosed with MRSA discitis, spinal osteomyelitis and severe spinal stenosis. The patient was transferred to [facility] for spine surgery and he had spine surgery. Since then, he has lost followup. The patient was found unresponsive by his daughter. The patient was in the same position for many hours. Although information is very conflicting, I tried to call patient's daughter, tried to talk to her but, what I understand, patient was found unresponsive. He does have a history of polysubstance abuse. There is a question of drug overdose. The patient was unresponsive upon presentation but he was still breathing. The patient was transferred to emergency room. CT scan was done which did not show any anoxic injury or so. There are some changes which could be secondary to methanol or carbon monoxide poisoning. The patient does not respond to any question at all. PAST MEDICAL HISTORY 1. History of MRSA osteomyelitis. 2. History of COPD. 3. History of depression. 4. History of IV drug abuse in the past. 5. History of spinal stenosis. 6. History of depression. 7. Tobacco abuse. PAST SURGICAL HISTORY 1. History of lumbar spinal surgery. 2. History of another spine surgery at [facility] in 2016. SOCIAL HISTORY The patient lives at home. According to what I understand, he lives with his daughter. He continued to smoke. He does have a history of polysubstance abuse. Parents have recently told us that most likely he was using some synthetic drugs. FAMILY HISTORY Unremarkable. ALLERGIES No known drug allergies. Unit #: [id number] #: [id number] Patient: CELESTINA LAI JR REVIEW OF SYSTEMS Not much available at this time. MEDICATIONS Medications will be compiled. PHYSICAL EXAMINATION GENERAL: The patient is being evaluated in ICU room 12. VITAL SIGNS: Blood pressure on admission was 112/82, respiratory rate 15, pulse is 95, temperature 98.7. Oxygen saturation is 95%. The patient is not responsive. CHEST: Fair air entry, decreased at the bases. CVS: S1, S2 positive. Regular rhythm. ABDOMEN: Soft. EXTREMITIES: Negative edema. TECHNICAL SUPPORT ASSISTANT: Unresponsive. DIAGNOSTIC STUDIES LABORATORY: In ER, ABG showed pH 7.40, pCO2 32.4, pO2 72.1, oxygen saturation is 95%. Urinalysis was normal. Urine drug screen was positive for opiates and TCA. CBC showed WBC 13.1, hemoglobin 14.1, hematocrit 43.3 and platelet count of 350. PT/INR is 12.7 and 1.2. Ammonia 16. Lactic acid 2.6. BMP shows sodium 136, potassium 4.0, BUN 39, creatinine 1.4. AST 101, ALT 86, alkaline phos. 143. Alcohol less than 5. BNP 204. Troponin elevated to 0.18. see job # [id number] for completion Dictated by Poly Mays/shasta TD: 03/23/2017 13:01 JOB #: [id number] Unit #: [id number] #: [id number] Patient: JOELLE CELESTINA NAYLOR HISTORY AND PHYSICAL Page 1 of 1 X Vika Hua MD HISTORY AND PHYSICAL
--- NOTE | ~2017-03-22 | CR72 ---
[facility] A Service of [facility] RADIOLOGY TEXT RESULTS PATIENT: CELESTINA LAI JR LOCATION: [facility] 331-01 : [birth year] UNIT #: [id number] AGE: [address]: Syd Abebe MD SEX: M ORDER DR: [id number] [facility] [address] [facility]. [place], [place] [address] [id number] I MR#: [id number] Acc #: [id number] NAME: CELESTINA LAI : 1965 SEX: M STUDY DATE/TIME: 03/29/2017 14:05 UNIT: [address] ROOM: [facility] STUDY DESCRIPTION: CR Chest Single View Portable Attending Physician: Syd Abebe M.D. Ordering Physician: Syd Abebe M.D. Primary Care Physician: Primary Care Physician No MEDICAL IMAGING REPORT This report is preliminary unless electronic signature is present EXAM Portable chest HISTORY Shortness of air. Followup chest tube. COMPARISON 03/29/2017 at 0608 hours FINDINGS Examination demonstrates interval removal of the patient's flexible feeding tube. Large bore chest tube remains in place directed to the left upper thorax. No focal airspace disease or consolidation. Slight blunting of the right CP angle but no sizeable effusions. Heart and mediastinum unremarkable. No visible pneumothorax. Dictated by... Valdo Rojo M.D. THIS IS AN ELECTRONICALLY VERIFIED REPORT Valdo Rojo M.D. at 03/30/2017 2:47 PM YVONNE/sanjiv TD: 03/29/2017 22:32 JOB #: [id number] MEDICAL IMAGING REPORT Page 1 of 1 COPY
--- NOTE | ~2017-03-22 | FU ---
[facility] Nutrition Therapy DATE: 03/28/17 Patient: CELESTINA LAI JR Physician: MARVIN Address: [address] [facility] Room/Bed: [address] [place] [address], Zip: [place] [address] Admit Date: 03/22/17 Date of : [birth year] Height: 5 10 Weight: 138 63 NUTRITION MONITORING/FOLLOW-UP: Reason: PT SEEN FOR FOLLOW-UP/ENTERAL NUTRITION SUPPORT DX: ALTERED MENTAL STATUS, GI BLEED Anthropometrics: 5'10", WT: 156# (71 KG), BMI: 22.4 -WEIGHTS HAVE BEEN STABLE SINCE ADMIT Labs: GLU: 112, ALB: 3.2 Meds: PEPCID, NACL, LOVENOX I&O's: 1503/936 Skin: NO KNOWN SKIN ISSUES Estimated Nutrition Needs: 9784-4995 KCAL 77-91 G PRO Assessment: CHART REVIEWED AND EVENTS NOTED. PT SEEN FOR ENTERAL NUTRITION SUPPORT FOLLOW-UP. PT ASLEEP AT TIME OF VISIT ON ROOM AIR RECEIVING ENTERAL NUTRITION SUPPORT OF JEVITY 1.5 @ 55 ML/HR + 180 ML q 4 HOURS FREE H20 FLUSHES. PER RN AND CHART, PT TOLERATING ENTERAL NUTRITION. PER PUMP HISTORY, PT RECEIVING ~97% ESTIMATED NEEDS PAST 24 HOURS. PER RN AND CHART, PT FAILED [employer] EVAL THIS AM, RECOMMENDING PT REMAIN NPO. NO FAMILY IN ROOM AT THIS TIME. RD TO CONTINUE TO FOLLOW. Dx: INADEQUATE PROTEIN-ENERGY INTAKE R/T CURRENT DIAGNOSIS AEB NPO X 2 DAYS, [employer] EVAL.-ACTIVE/RESOLVED NEW DX: ADEQUATE ENTERAL NUTRITION INFUSION R/T ENTERAL NUTRITION AT GOAL AEB PT RECEIVING ~97% ESTIMATED NEEDS PAST 24 HOURS PER PUMP HISTORY. Intervention: 1. ENTERAL NUTRITION SUPPORT 2. [employer] FOLLOWING Monitoring, Evaluation and Goals: 1. ORAL INTAKE; ADVANCE DIET AND CONSUME >50% OF MEALS W/NO C/O N/V/D-NOT MET 2. WEIGHTS; PROMOTE WEIGHT MAINTENANCE-IN PROGRESS 3. LABS; WNL-IN PROGRESS 4. GI; PROMOTE REGULAR GI FUNCTION NEW GOAL: 1. ENTERAL NUTRITION SUPPORT; PROVIDE >80% ESTIMATED NUTRIENT NEEDS-MET [facility] Nutrition Therapy DATE: 03/28/17 Patient: CELESTINA LAI JR Physician: MARVIN Address: [address] [facility] Room/Bed: [facility] [place] [address], Zip: [place] [address] Admit Date: 03/22/17 Date of : [birth year] Height: 5 10 Weight: 138 63 MONITOR: -TF RATE/RESIDUALS -WEIGHTS -[employer] RE-EVAL Recommendations: 1. CONTINUE CURRENT ENTERAL NUTRITION SUPPORT OF JEVITY 1.5 @ 55 ML/HR + 180 ML q 4 HOURS FREE H20 FLUSHES -PROVIDES 1980 KCAL, 84 G PRO, 2083 ML FREE H20 2. ONCE MEDICALLY FEASIBLE, ADVANCE DIET PER [employer] + HEART HEALTHY DIET RD WILL F/U PER PROTOCOL PT IS MODERATELY COMPROMISED Respectfully, CHRIS CORONA MS, RD, LD Food and Nutritional Services [facility] cc: client file
--- NOTE | ~2017-03-22 | CT71 ---
[facility] A Service of [facility] & [facility] RADIOLOGY TEXT RESULTS PATIENT: CELESTINA LAI JR LOCATION: A 331-01 : 63 UNIT #: [id number] AGE: [address]: Syd Abebe MD SEX: M ORDER DR: [id number] [facility] [address] [facility]. [place], [place] [address] [id number] I MR#: [id number] Acc #: [id number] NAME: CELESTINA LAI JR : 1965 SEX: M STUDY DATE/TIME: 03/22/2017 3:53 UNIT: [facility] ROOM: [facility] STUDY DESCRIPTION: CT Head Wo Contrast Attending Physician: Syd Abebe M.D. Ordering Physician: Sangeetha Gary M.D. Primary Care Physician: No Primary Care Physician MEDICAL IMAGING REPORT This report is preliminary unless electronic signature is present EXAM CT scan of the head without contrast. INDICATION The patient is unresponsive tonight with acute mental status changes. Unenhanced images were obtained through the brain. There is symmetric oval low density areas in the basal ganglia. These areas measure about 18 mm each. This is affecting the globus pallidus bilaterally and is suggestive of subacute ischemic change which in this area could be due to carbon monoxide poison, methanol ingestion or cyanide poisoning. The rest of the brain is normal with no mass or extraaxial fluid collection. IMPRESSION There are oval low density areas affecting the globus pallidus bilaterally. This is typical of toxic response to carbon monoxide or possibly methanol. Clinical correlation is recommended. The rest of the brain is normal. Dictated by... Mac Giraldo M.D. THIS IS AN ELECTRONICALLY VERIFIED REPORT Mac Giraldo M.D. at 03/22/2017 1:22 PM FEL/bd TD: 03/22/2017 10:27 JOB #: [id number] MEDICAL IMAGING REPORT Page 1 of 1 COPY
--- NOTE | ~2017-03-22 | A ---
[facility] Nutrition Therapy DATE: 03/24/17 Patient: CELESTINA LAI JR Physician: MARVIN Address: [address] [place] [address] Room/Bed: [address] [place] [address], Zip: [place] [address] Admit Date: 03/22/17 Date of : [birth year] Height: 5 10 Weight: 138 63 NUTRITIONAL ASSESSMENT: REASON: NPO IN ICU ASSESSMENT PT IS 51 Y.O. MALE ADMITTED FOR ALTERED MENTAL STATUS, GI BLEED PMH: IV DRUG ABUSE, COPD, DEPRESSION, ETOH ABUSE, MRSA Anthropometrics: 5'10", WT: 154# (70 KG), BMI: 22.1 Labs: GLU: 45, CA+:8.3, ALB: 3.0, AST: 44, ALT: 95, LIPASE: 16 Meds: NACL, LOVENOX, D5% I/O & Bowel function: 1741/1452, 2 BMs NOTED Skin Integrity: NO KNOWN SKIN ISSUES Estimated Nutrition Needs: 2066-3915 KCAL (25-30 KCAL/KG BW) 77-91 G PRO (1.1-1.3 G PRO/KG BW) FLUIDS CONSISTENT W/KCAL NEEDS OR MANAGE PER MD Assessment: CHART REVIEWED AND EVENTS NOTED. PT SEEN FOR NPO X 2 DAYS. PT ASLEEP AT TIME OF VISIT. COUNTERINTELLIGENCE AGENT FOLLOWING PT AND DEEMS NOT APPROPRIATE FOR DIET ADVANCEMENT 2' PT TOO LERHARGIC. ?PLANS FOR EGD TODAY FOR GI BLEED. NO FAMILY IN ROOM AT TIME OF VISIT. RD TO FOLLOW. SEE RECOMMENDATIONS BELOW. Dx: INADEQUATE PROTEIN-ENERGY INTAKE R/T CURRENT DIAGNOSIS AEB NPO X 2 DAYS, COUNTERINTELLIGENCE AGENT JOSS. Intervention: 1. NPO Monitoring, Evaluation and Goals: 1. ORAL INTAKE; ADVANCE DIET AND CONSUME >50% OF MEALS W/NO C/O N/V/D 2. WEIGHTS; PROMOTE WEIGHT MAINTENANCE 3. LABS; WNL 4. GI; PROMOTE REGULAR GI FUNCTION MONITOR: -DIET ADVANCEMENT/COUNTERINTELLIGENCE AGENT JOSS -PO INTAKE -WEIGHTS -LABS [facility] Nutrition Therapy DATE: 03/24/17 Patient: CELESTINA LAI JR Physician: MARVIN Address: [address] [place] [address] Room/Bed: [address] [place] [address], Zip: [place] [address] Admit Date: 06/13/17 Date of : 63 Height: 5 10 Weight: 138 63 Recommendations: 1. ONCE MEDICALLY FEASIBLE, ADVANCE DIET PER COUNTERINTELLIGENCE AGENT + GI SOFT/LOW FIBER IF GI BLEED CONFIRMED -IF NO GI BLEED, ADVANCE DIET TO HEART HEALTHY 2. IF PT UNABLE TO TOLERATE PO INTAKE, RECOMMEND TO BEGIN ALTERNATIVE NUTRITION SUPPORT OF JEVITY 1.5 @ 20 ML/HR, ADVANCE 10 ML q 6 HOURS TO GOAL RATE OF 55 ML/HR -PROVIDES 1980 KCAL, 84 G PRO, 1003 ML FREE H20 ADD FREE H20 FLUSHES OF 180 ML q 4 HOURS TO MEET PT'S CURRENT ESTIMATED FLUID NEEDS OR MANAGE PER MD 3. CONTINUE TO OPTIMIZE BLOOD SUGAR CONTROL REGIMEN RD WILL F/U PER PROTOCOL PT IS MODERATELY COMPROMISED Respectfully, CHRIS CORONA MS, RD, LD Food and Nutritional Services [facility] cc: client file
--- NOTE | ~2017-03-22 | CO ---
Unit #: [id number] #: [id number] Patient: CELESTINA LAI JR [id number] [facility] [address] [facility] [place] [facility]. [place], [place] [address] [id number] MR#: [id number] NAME: CELESTINA LAI ROOM: CICCU2 Age: 51 Sex: M Admission Date: 03/22/2017 : 1965 Attending Physician: Syd Abebe M.D. Primary Care Physician: Eliana Primary Care Physician Requesting Physician: Syd Abebe M.D. Consultation Date: 03/22/2017 CONSULTATION REPORT REASON FOR CONSULT Altered mental status. PATIENT IDENTIFICATION This is a 51-year-old, unknown-handedness, male evaluated in ICU room 12 at [facility]. SOURCE OF INFORMATION Obtained from the medical record and family. HISTORY OF PRESENT ILLNESS This is a 51-year-old, unknown-handedness, male with a past medical history of tobacco use, reported polysubstance abuse though the patient's daughter denies any current use, and history of alcohol abuse who presents to [facility] with altered mental status. He apparently was found poorly responsive in his chair by family. Apparently, he had not moved for several days. Attempted to discuss initially with the patient's son who did not have much information and reported that the patient lived with his daughter. She came in later and I did discuss with her. She states that he had been complaining of low back pain and not feeling well for a few days and had been resting in his chair; however, he had become increasingly poorly responsive and was unable to eat or communicate and had urinated on himself and was very weak. She therefore decided to call 911. She reports that he has not complained of any headache, fever, or chills, or any infectious symptoms, but had progressive mental status change and poor responsiveness. It really was not clear, however, whether he had more of a sudden change or whether she found him that way after a day or two. She states that she called EMS because she was not able to get him to eat or drink and she could not get him to respond. He had a head CT done that shows hypodensities in the bilateral globus pallidus concerning for toxic response to carbon monoxide or possibly methanol versus hypoxia. Rest of the brain is normal per CT of the head. Patient is unable to contribute to any history or review of systems on evaluation. He does not follow commands, but he does grimace and withdrawal from noxious stimuli equally. PAST MEDICAL HISTORY 1. MRSA osteomyelitis. 2. COPD. 3. Depression. 4. History of chronic low back pain. The patient's daughter states that he had back surgery in [address] Mckeon. Looking at the records, it appears as though he may have had an epidural abscess. 5. There is also documentation of intravenous IV drug use. Patient's Unit #: [id number] #: [id number] Patient: CELESTINA LAI JR daughter tells me that she does not believe he has any current IV drug use. ALLERGIES No known drug allergies. HOME MEDICATIONS Unavailable at the time of evaluation. FAMILY HISTORY Unknown. SOCIAL HISTORY He uses tobacco. He has a reported history of alcohol abuse and IV drug use. His daughter states that he does not currently have any drug use that she is aware. His urine tox screen is positive for opiates and, also, for TCA. Again, at the time of evaluation and consultation, home medications not available. REVIEW OF SYSTEMS Unable to obtain from the patient yesterday given his mental status. Otherwise, pertinent positives are as discussed above as per discussion with the patient's daughter at the bedside. PHYSICAL EXAMINATION VITAL SIGNS: Temperature 97.4; pulse 79; respirations 14; blood pressure 102/74; oxygen saturation 99%; height 5 feet, 10 inches; weight is 154 pounds; and BMI 22. NEUROLOGIC: At the time of evaluation on initial consultation, patient was not following commands and nonverbal, but he does grimace to noxious stimuli and withdraws equally from noxious stimuli. Unable to assess speech further. He does not follow commands. CRANIAL NERVES: Unable to fully assess sarabia of vision; eyes are conjugate without ptosis or nystagmus. Extraocular movements appear to be intact with oculocephalic reflex. Unable to assess sensation of face and scalp. Strength of muscles of facial expression reveals no asymmetry with grimace. Unable to assess hearing, tongue, uvula, or palate. Head turning is unremarkable spontaneously. NECK: Supple. MOTOR: He withdraws equally from noxious stimuli with all extremities. No abnormal tone seen. SENSORY: He withdraws from noxious stimuli equally and bilaterally. GAIT AND ROMBERG: Deferred. REFLEXES: Unable to elicit. Toes are equivocal. COORDINATION: Unable to assess. DIAGNOSTIC STUDIES IMAGING: CT of the head: Please see above. LABORATORY: BNP 204. Sodium 136, potassium 4, chloride 103, CO2 24, glucose 113, BUN 39, creatinine 1.4, estimated GFR 61.6, calcium 8.5, AST 101, ALT 86, alk phos 143, total protein 7.4, albumin 3.4. Lipase 16. Magnesium 2.7. Alcohol less than 5. Lactic acid 2.6. Ammonia level 16. PT 12.7, INR 1.2, and PTT 31. White blood cell count 13.1, hemoglobin 14.1, hematocrit 43.3, and platelet count 350. Urine drug screen positive for opiates and TCA. Urinalysis unremarkable. Arterial blood gas on admission: pH 7.407, pCO2 32.4, pO2 72.1, bicarb 20.3, and O2 sat 85%. Unit #: [id number] #: [id number] Patient: JOELLE CELESTINA NAYLOR IMPRESSION 1. Altered mental status with abnormal CT of the head. Will request MRI of the brain. 2. Concern for substance abuse, questionable overdose. 3. Tobacco abuse. 4. Elevated troponin. Cardiology consulted. 5. Rhabdomyolysis. Nephrology consulted. 6. Chronic back pain with recent back surgery. History of epidural abscess. Will request MRI of the lumbar spine. PLAN Please see orders. The question is was this exposure with the patient hypoxic. He appears to be encephalopathic, but a full clear picture is not clear at this point. We have discussed with family and further workup is needed to help determine what may have happened. He has multiple issues, not only neurologic, but he possibly has primary and secondary neurologic issues that may have caused abnormal findings on CT scan. He needs further testing and workup is underway. He has chronic back pain. He has abnormal labs, decreased O2, elevated CK, and elevated liver enzymes. He is being treated for rhabdomyolysis since he has elevated lactic acid. Question was this hypoxia, was it infection. At this time, it does not appear to be highly suggestive of FUND CONTROLLER infectious etiology. Further recommendations from a neurologic standpoint pending MRI of the brain and MRI of the lumbar spine. He has no active seizure or reported seizure and nothing to suggest active acute focal stroke, but, again, he does have abnormal findings on the CT scan as discussed above. We will follow closely along with you. Please see orders. Patient seen by Dr. Garcia as well. Please see his extensive noted. Please call for any questions or issues. We thank you very much for allowing us to assist in the care of this patient. Dictated by... Freddy Dean/ernie TD: 03/23/2017 12:52 JOB #: [id number] CONSULTATION REPORT Page 1 of 1 X Melissa Goyal SYSTEMS PROTECTION TECHNICIAN X CONSULTATION REPORT
--- NOTE | ~2017-03-22 | CO ---
Unit #: [id number] #: [id number] Patient: MAX ROBERTSON JR [id number] [facility] [address] [facility]. [place], [place] [address] [id number] I MR#: [id number] NAME: MAX ROBERTSON JR ROOM: 331 Age: 51 Sex: M Admission Date: 03/22/2017 : 1965 Attending Physician: Syd Abebe M.D. Consultation Date: 03/30/2017 CONSULTATION REPORT REASON FOR CONSULTATION Followup. DISCUSSION Mr. Max Robertson Junior is a 51-year-old white male, seen in room 331, bed 1 on 03/30/2017 at [facility]. The patient was able to move from bed to chair with the help of PT. The patient is showing improvement, able to make good eye contact, able to answer some questions. The patient is more verbal, admitted a history of depression, able to sleep good, tolerating medication fairly well. The patient started on Zyprexa yesterday and no side effects from medication. The patient did not show any agitation. Vital signs; temperature 98.4, pulse 76, respiratory rate 18, blood pressure 106/77, oxygen saturation 100%. 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 REVIEW OF SYSTEMS Complete review of systems unremarkable. MENTAL STATUS EXAMINATION General appearance, the patient dressed casually in hospital attire. Attention span and concentration, fair. Speech, slow. Orientation in self. Mood and affect, labile. Thought process, circumstantial. Thought content, guarded and paranoid. Recent and remote memory, poor. Language, fair. Fund of knowledge, fair to slightly impaired. Insight and judgment, fair to slightly impaired. DIAGNOSES Psychiatric: Major depressive disorder, recurrent, severe, F33.2. Psychosis, not otherwise specified, F29.0. ASSESSMENT/PLAN 1. Supportive psychotherapy and psychoeducation provided to the patient. 2. Educated about benefits and side effects of medication and course and prognosis of illness. 3. Advised to continue with current medication Zyprexa 5 mg at bedtime and advised to add Prozac 10 mg daily for mood symptom. We will continue to follow. If needed, consider further adjustment of medication. Please feel free to call if any question, telephone #[phone]. Dictated by... Shahab Abrams M.D. Unit #: [id number] #: [id number] Patient: JOELLE MAX NAYLOR/brandon TD: 03/31/2017 06:07 JOB #: [id number] CONSULTATION REPORT Page 1 of 1 X Shahab Abrams MD CONSULTATION REPORT
--- NOTE | ~2017-03-22 | CR72 ---
[facility] A Service of [facility] & [facility] RADIOLOGY TEXT RESULTS PATIENT: CELESTINA LAI JR LOCATION: [facility] 331-01 : [birth year] UNIT #: [id number] AGE: [address]: Syd Abebe MD SEX: M ORDER DR: [id number] [facility] [address] [facility]. [place], [place] [address] [id number] I MR#: [id number] Acc #: [id number] NAME: CELESTINA LAI : 1965 SEX: M STUDY DATE/TIME: 03/27/2017 04:10 UNIT: [facility] ROOM: [facility] STUDY DESCRIPTION: CR Chest Single View Portable Attending Physician: Syd Abebe M.D. Ordering Physician: Charlie Abernathy M.D. Primary Care Physician: No Primary Care Physician MEDICAL IMAGING REPORT This report is preliminary unless electronic signature is present EXAM Portable chest 03/27/2017 04:10 INDICATIONS Weakness, shortness of air and confusion for 6 days. FINDINGS AP portable views of the chest is compared with 03/22/2017. Cardiac mediastinal contours are normal. The lungs are now clear. However, there is a new small to moderate left pneumothorax which is probably about 20%. No midline shift. No right-side pneumothorax. Heart size normal. IMPRESSION 1. New left-side pneumothorax which is probably about 20%. No midline shift. Lungs are clear. 2. Findings regarding pneumothorax have been called directly to the patients ICU nurse at the time of this dictation. She reports she will call the patient's physician immediately. STAT * RESULT Dictated by... Ray Armendariz Jr., M.D. THIS IS AN ELECTRONICALLY VERIFIED REPORT Ray Armendariz Jr., M.D. at 03/27/2017 6:07 AM MICAELA/missael TD: 03/27/2017 05:28 [facility] A Service of [facility] & [facility] RADIOLOGY TEXT RESULTS PATIENT: CELESTINA LAI JR LOCATION: [facility] 331-01 : [birth year] UNIT #: [id number] AGE: [address]: Syd Abebe MD SEX: M ORDER DR: JOB #: [id number] MEDICAL IMAGING REPORT Page 1 of 1 COPY
--- NOTE | ~2017-03-22 | CR63 ---
[facility] A Service of [facility] & [facility] RADIOLOGY TEXT RESULTS PATIENT: CELESTINA LAI JR LOCATION: [facility] 331-01 : [birth year] UNIT #: [id number] AGE: [address]: Syd Abebe MD SEX: M ORDER DR: [id number] [facility] [address] [facility]. [place], [place] [address] [id number] I MR#: [id number] Acc #: [id number] NAME: CELESTINA LAI JR : 1965 SEX: M STUDY DATE/TIME: 04/01/2017 7:05 [facility] ROOM: [facility] STUDY DESCRIPTION: CR Chest 2 View Attending Physician: Syd Abebe M.D. Ordering Physician: Syd Abebe M.D. Primary Care Physician: Primary Care Physician No MEDICAL IMAGING REPORT This report is preliminary unless electronic signature is present EXAM PA and lateral chest. INDICATIONS Pneumonia and shortness of breath for 3 days. COMPARISON 03/29/2017 FINDINGS Removal of the chest tube from the left. Tiny left apical pneumothorax. No new infiltrates. Heart size stable. IMPRESSION The left chest tube has been removed. There is a tiny left apical pneumothorax. Dictated by... Charles Rojo M.D. THIS IS AN ELECTRONICALLY VERIFIED REPORT Charles Rojo M.D. at 04/05/2017 7:34 AM JADE/ernie TD: 04/01/2017 12:29 JOB #: [id number] MEDICAL IMAGING REPORT Page 1 of 1 COPY
--- NOTE | ~2017-03-22 | CT4 ---
[facility] A Service of [facility] RADIOLOGY TEXT RESULTS PATIENT: CELESITNA LAI JR LOCATION: A 331-01 : 63 UNIT #: [id number] AGE: [address]: Syd Abebe MD SEX: M ORDER DR: [id number] [place] [id number] [facility]. [place], [place] [address] [id number] I MR#: [id number] Acc #: [id number] NAME: CELESTINA LAI JR : 1965 SEX: M STUDY DATE/TIME: 03/22/2017 3:56 UNIT: CICCU2 ROOM: [facility] STUDY DESCRIPTION: CT Abd and Pelv Wo Cont Attending Physician: Syd Abebe M.D. Ordering Physician: Sangeetha Gary M.D. Primary Care Physician: Primary Care Physician No MEDICAL IMAGING REPORT This report is preliminary unless electronic signature is present EXAM CT scan of the abdomen and pelvis without contrast HISTORY Suspected GI bleeding. Patient is uncooperative and complains of abdomen pain. TECHNIQUE Axial 3.0 mm images were obtained through the abdomen and pelvis without IV or oral contrast. This CT exam was performed with one or more of the following radiation dose reduction techniques: automatic exposure control, adjustment of mA and/or kV according to patient size, and iterative reconstruction. FINDINGS There is mild basilar atelectasis. The liver, gallbladder, spleen, pancreas, adrenal glands and kidneys are normal. The aorta is normal in size and there is no adenopathy. The bowel is normal. There are postop changes in the lumbar spine. The bladder is collapsed around a Nguyễn catheter and there may be mild wall thickening diffusely. The prostate gland is normal. A Nguyễn catheter is present. IMPRESSION 1. There is Nguyễn catheter present and the bladder is mostly collapsed. There may be mild diffuse wall thickening. 2. There is no abnormality of the bowel visible. 3. Postoperative change lumbar spine. Dictated by... Mac Giraldo M.D. [facility] A Service of [facility] RADIOLOGY TEXT RESULTS PATIENT: CELESTINA LAI JR LOCATION: [facility] 331-01 : 63 UNIT #: [id number] AGE: [address]: Syd Abebe MD SEX: M ORDER DR: THIS IS AN ELECTRONICALLY VERIFIED REPORT Mac Giraldo M.D. at 03/22/2017 1:22 PM Jason TD: 03/22/2017 10:24 JOB #: [id number] MEDICAL IMAGING REPORT Page 1 of 1 COPY
--- NOTE | ~2017-03-22 | EKG ---
PATIENT: CELESTINA LAI UNIT #: [id number] Ventricular Rate: 96 BPM Atrial Rate: 96 BPM P-R Interval: 136 ms QRS Duration: 82 ms Q-T Interval: 364 ms QTC Calculation(Bezet): 459 ms P Howard: 81 degrees Calculated R Howard: 81 degrees Calculated T Howard: 76 degrees Diagnosis Line: Normal sinus rhythm Diagnosis Line: Normal ECG Diagnosis Line: No previous ECGs available Diagnosis Line: Confirmed by MICHELE FENTON MD ([id number]) on Diagnosis Line: 03/22/2017 9:16:19 PM INTERPRETING MD: ANNI
--- NOTE | ~2017-03-22 | EKG ---
PATIENT: CELESTINA LAI UNIT #: [id number] Ventricular Rate: 73 BPM Atrial Rate: 73 BPM P-R Interval: 132 ms QRS Duration: 86 ms Q-T Interval: 402 ms QTC Calculation(Bezet): 442 ms P Prospect: 67 degrees Calculated R Prospect: 68 degrees Calculated T Prospect: 75 degrees Diagnosis Line: Normal sinus rhythm Diagnosis Line: Normal ECG Diagnosis Line: When compared with ECG of 23-MAR-2017 09:22, Diagnosis Line: (unconfirmed) Diagnosis Line: No significant change was found Diagnosis Line: Confirmed by CASEY FRANCES MD ([id number]) on Diagnosis Line: 03/25/2017 4:14:30 PM INTERPRETING MD: GISELL
--- NOTE | ~2017-03-22 | CR72 ---
[facility] A Service of [facility] RADIOLOGY TEXT RESULTS PATIENT: CELESTINA LAI JR LOCATION: [place] [address]- : [birth year] UNIT #: [id number] AGE: [address]: Syd Abebe MD SEX: M ORDER DR: [id number] [facility] [address] [facility]. [place], [place] [address] [id number] I MR#: [id number] Acc #: [id number] NAME: CELESTINA LAI JR : 1965 SEX: M STUDY DATE/TIME: 03/28/2017 5:11 UNIT: [facility] ROOM: [facility] STUDY DESCRIPTION: CR Chest Single View Portable Attending Physician: Syd Abebe M.D. Ordering Physician: Charlie Abernathy M.D. Primary Care Physician: Primary Care Physician No MEDICAL IMAGING REPORT This report is preliminary unless electronic signature is present EXAM AP portable chest DATE: 03/28/2017 HISTORY 51-year-old male with weakness, shortness of breath and confusion since 03/21/2017. COMPARISON AP portable chest 03/27/2017 at 08:38. FINDINGS Left chest tube is stable in position, there is a small left apical pneumothorax which appears unchanged. Dobbhoff tube extends below the diaphragm, the tip not included in the field of view. Heart size is stable and within normal limits. New right perihilar infrahilar interstitial and alveolar opacities are present, worrisome for developing pneumonia in the appropriate clinical context. Left suprahilar and linear opacity which may represent chronic scarring, not thought to be significantly changed. No pleural effusion is seen. There are old healed left rib fractures. IMPRESSION 1. Ill-defined right perihilar interstitial type infiltrates, new or increased from 03/27/2017. Correlate clinically for evolving pneumonia. 2. Left chest tube is stable in position. A small left apical pneumothorax is stable. Dictated by... Elana Lawler M.D. [facility] A Service of [facility] RADIOLOGY TEXT RESULTS PATIENT: CELESTINA LAI JR LOCATION: [facility] 331-01 : 63 UNIT #: [id number] AGE: [address]: Syd Abebe MD SEX: M ORDER DR: THIS IS AN ELECTRONICALLY VERIFIED REPORT Elana Lawler M.D. at 03/29/2017 2:00 PM KAYLAH/christine TD: 03/28/2017 11:06 JOB #: [id number] MEDICAL IMAGING REPORT Page 1 of 1 COPY
--- NOTE | ~2017-03-22 | CO ---
Unit #: [id number] #: [id number] Patient: MAX ROBERTSON JR [id number] [facility] [address] [facility]. [place], [place] [address] [id number] I MR#: [id number] NAME: MAX ROBERTSON JR ROOM: 331 Age: 51 Sex: M Admission Date: 03/22/2017 : 1965 Attending Physician: Syd Abebe M.D. CONSULTATION REPORT REASON FOR CONSULTATION Followup. DISCUSSION Mr. Max Robertson is a 51-year-old male, seen in room 331, bed 1 at [facility] on 04/01/2017. The patient dressed casually in hospital attire, lying comfortably in bed. The patient made good eye contact, able to answer some of the questions. The patient reports that he is feeling better. Still problem with memory and confusion, but overall making progress. The patient denied any agitation or trouble sleeping. Currently, no side effects from medication. Vital signs; temperature 98.3, pulse 81, respirations 18, blood pressure 107/72, and oxygen saturation 99%. The patient denied any suicidal or homicidal ideation, but still sad and depressed. REVIEW OF SYSTEMS Complete review of systems unremarkable. MENTAL STATUS EXAMINATION General appearance; the patient dressed casually in hospital attire and thin built. Attention span and concentration, fair. Speech, slow in volume with long pauses. Orientation in self and place. Mood and affect, labile and depressed. Thought process, coherent. Thought content, the patient denied any thoughts of harming self or others, but guarded and withdrawn. Recent and remote memory, fair to poor. Language, fair. Fund of knowledge, fair. Insight and judgment, fair to slightly impaired. DIAGNOSES Psychiatric: Major depressive disorder, recurrent, severe, F33.2; psychosis, not otherwise specified, F29.0. ASSESSMENT/PLAN 1. Supportive psychotherapy and psychoeducation provided to the patient. 2. Educated about benefits and side effects of medication and course and prognosis of illness. 3. Advised to continue with current combination of Zyprexa and Prozac. If needed, consider further adjustment of dosage. We will continue to follow. Please feel free to call if any questions, telephone #[phone]. Dictated by... Shahab Abrams M.D. Unit #: [id number] #: [id number] Patient: ROBERTSON MAX NAYLOR/brandon TD: 04/01/2017 23:22 JOB #: [id number] CONSULTATION REPORT Page 1 of 1 X Shahab Abrams MD CONSULTATION REPORT
--- NOTE | ~2017-03-22 | EE ---
Unit #: [id number] #: [id number] Patient: CELESTINA LAI JR [id number] [address] [address] [id number] I MR#: [id number] NAME: CELESTINA LAI JR : 1965 SEX: M STUDY DATE/TIME: 03/23/2017 UNIT: [facility] ROOM: [facility] STUDY DESCRIPTION: EEG Attending Physician: Syd Abebe M.D. Referring Physician: Syd Abebe M.D. Primary Care Physician: No Primary Care Physician NEURODIAGNOSTICS REPORT EXAM EEG REASON FOR THE STUDY Altered mental status. EEG DESCRIPTION This is an inpatient, digitally recorded multi-montage adult EEG, which is a portable recording. The leads were placed according to International 10-20 System. Hyperventilation and photic stimulation was not done. The patient has significant mental status changes. There was diffuse delta and then theta activity throughout the recording. I did not see any asymmetry, I did not see any seizure, I did not see any interictal discharges. Some brief spindles were seen initially and then the patient calmed down and we could see a more formed EEG with sleep spindles. No clinical events were seen. Hypoventilation and photic stimulation was not done. IMPRESSION Abnormal EEG showing diffuse slowing which is indicative of encephalopathy. Nothing suggesting seizure or status. An EEG like this does not rule out epilepsy. This indicates severe encephalopathy so clinical correlation is recommended. Dictated by... Poly Marie/shasta TD: 03/24/2017 06:31 JOB #: [id number] Unit #: [id number] #: [id number] Patient: CELESTINA LAI JR NEURODIAGNOSTICS REPORT Page 1 of 1 X Andres Garcia MD NEURODIAGNOSTICS REPORT
[2017-03-22 01:15] LABS: ARTERIAL BLOOD GAS ART SITE RIGHT BRACHIAL; ARTERIAL BLOOD GAS CARBOXY HB 1.2 %sat (0.0-9.0); ARTERIAL BLOOD GAS DELIVERY ROOM AIR; ARTERIAL BLOOD GAS HCO3 20.3 mmol/L; ARTERIAL BLOOD GAS MET HB 0.7 %sat (0.0-2.0); ARTERIAL BLOOD GAS PCO2 32.4 mmHg (35.0-45.0); ARTERIAL BLOOD GAS PO2 72.1 mmHg (80.0-100); ARTERIAL BLOOD GAS pH 7.407 (7.350-7.450); ARTERIAL DRAW? YES
[2017-03-22 01:48] LABS: URINE SOURCE CLEAN CATCH
[2017-03-22 01:52] LABS: URINE APPEARANCE CLEAR; URINE BILIRUBIN NEG (NEG); URINE BLOOD NEG (NEG); URINE COLOR YELLOW; URINE GLUCOSE NEG (NEG); URINE KETONE NEG (NEG); URINE LEUKOCYTE ESTERASE NEG (NEG); URINE NITRATE NEG (NEG); URINE PH 5.5 (5-8); URINE PROTEIN NEG (NEG); URINE SPECIFIC GRAVITY 1.023 (1.003-1.035); URINE UROBILINOGEN 0.2 MG/DL (NEG)
[2017-03-22 01:54] LABS: CULTURE INDICATED? NO
[2017-03-22 02:02] LABS: AMPHETAMINE NEG (NEG); BARBITURATES NEG (NEG); BENZODIAZEPINES NEG (NEG); COCAINE NEG (NEG); MARIJUANA NEG (NEG); OPIATES POS (NEG); TRICYCLIC ANTIDEPRESSANTS POS (NEG); U METHADONE NEG (NEG)
[2017-03-22 02:37] LABS: BASOPHIL# 0.1 X10e3 (0-0.3); BASOPHIL% 0.4 % (0-2.5); EOSINOPHIL% 0.1 % (0.0-7.0); HEMATOCRIT 43.3 % (38.0-50.0); HEMOGLOBIN 14.1 gm/dL (13.0-16.0); LYMPHOCYTE# 1.2 X10e3 (1.0-3.5); MEAN CELL VOLUME 90.8 FL (83-96); MEAN CORPUSCULAR HEMOGLOBIN 29.6 PG (28-34); MEAN CORPUSCULAR HGB CONC 32.7 g/dL (30-36); MEAN PLATELET VOLUME 6.9 FL (6.5-11.5); MONOCYTE# 1.3 X10e3 (0-1.0); MONOCYTE% 9.8 % (3.0-12.0); NEUTROPHIL# 10.5 X10e3 (1.5-7.1); NEUTROPHIL% 80.7 % (40-75); PLATELET COUNT 350 X10e3 (140-420); RED BLOOD COUNT 4.77 X10e (3.90-5.60); RED CELL DISTRIBUTION WIDTH 14.9 % (11.0-15.5); WHITE BLOOD COUNT 13.1 X10e3 (4.0-10.5)
[2017-03-22 02:38] LABS: DIFF IND NO
[2017-03-22 02:56] LABS: INR 1.2; PROTHROMBIN TIME (PATIENT) 12.7 SECONDS (9.6-11.5)
[2017-03-22 02:59] LABS: ALBUMIN SERUM 3.4 g/dL (3.5-5.0); ALKALINE PHOSPHATASE 143 U/L (32-92); ALT (SGPT) 86 U/L (10-40); AST (SGOT) 101 U/L (10-42); BILIRUBIN, DIRECT 0.1 mg/dL (0.0-0.2); BILIRUBIN,INDIRECT 0.6 mg/dL (0.0-0.9); BILIRUBIN,TOTAL 0.7 mg/dL (0.2-2.0); BLOOD UREA NITROGEN 39 mg/dL (9-23); BUN/CREATININE RATIO 27.85; CALCIUM SERUM 8.4 mg/dL (8.4-10.2); CARBON DIOXIDE 24 mmol/L (22-31); CHLORIDE 103 mmol/L (100-111); CREATININE SERUM 1.4 mg/dL (0.6-1.4); GLOM FILT RATE Estimated 61.6 mL/min (>60); GLUCOSE FASTING 113 mg/dL (70-110); LIPASE 16 U/L (22-51); MAGNESIUM 2.7 mg/dL (1.6-3.0); PROTEIN TOTAL SERUM 7.4 g/dL (6.0-8.3); SODIUM 136 mmol/L (135-145)
[2017-03-22 03:09] LABS: ALCOHOL BLOOD <5 mg/dL (0)
[2017-03-22 03:21] LABS: POC - CKMB 31.2 ng/mL (0.0-7.9); POC - TROPONIN 0.18 ng/mL (<=0.05)
[2017-03-22 04:36] LABS: POC - CKMB 21.9 ng/mL (0.0-7.9); POC - TROPONIN 0.17 ng/mL (<=0.05)
[2017-03-22 15:27] LABS: FOLATE (FOLIC ACID) 6.1 ng/mL (>5.8)
[2017-03-22 16:27] LABS: THYROID STIMULATING HORMONE 1.61 uIU/ml (0.34-5.60)
[2017-03-22 16:34] LABS: FREE THYROXIN (T4) 0.75 ng/dL (0.58-1.64)
[2017-03-22 20:06] LABS: %MB 0.9 % (0.0-4.0); MB 13.8 ng/ml
[2017-03-23 07:22] LABS: BASOPHIL# 0.1 X10e3 (0-0.3); EOSINOPHIL# 0.1 X10e3 (0-0.7); HEMATOCRIT 35.3 % (38.0-50.0); LYMPHOCYTE# 1.5 X10e3 (1.0-3.5); LYMPHOCYTE% 17.7 % (17.0-45.0); MEAN CELL VOLUME 90.1 FL (83-96); MEAN CORPUSCULAR HEMOGLOBIN 29.8 PG (28-34); MEAN CORPUSCULAR HGB CONC 33.1 g/dL (30-36); MEAN PLATELET VOLUME 6.7 FL (6.5-11.5); MONOCYTE# 1.3 X10e3 (0-1.0); MONOCYTE% 14.9 % (3.0-12.0); NEUTROPHIL# 5.6 X10e3 (1.5-7.1); NEUTROPHIL% 65.4 % (40-75); PLATELET COUNT 273 X10e3 (140-420); RED BLOOD COUNT 3.92 X10e (3.90-5.60); RED CELL DISTRIBUTION WIDTH 14.5 % (11.0-15.5); WHITE BLOOD COUNT 8.5 X10e3 (4.0-10.5)
[2017-03-23 07:23] LABS: DIFF IND NO; HEMOGLOBIN 11.7 gm/dL (13.0-16.0)
[2017-03-23 08:14] LABS: CALCIUM SERUM 8.2 mg/dL (8.4-10.2); GLOM FILT RATE Estimated 86.2 mL/min (>60); POTASSIUM 3.9 mmol/L (3.5-5.1)
[2017-03-23 10:09] LABS: URINE SOURCE CATH
[2017-03-23 10:15] LABS: URINE APPEARANCE CLEAR; URINE BILIRUBIN NEG (NEG); URINE BLOOD TRACE (NEG); URINE COLOR YELLOW; URINE GLUCOSE NEG (NEG); URINE KETONE 1+ (NEG); URINE LEUKOCYTE ESTERASE 1+ (NEG); URINE NITRATE NEG (NEG); URINE PH 8.5 (5-8); URINE PROTEIN NEG (NEG); URINE SPECIFIC GRAVITY 1.018 (1.003-1.035)
[2017-03-23 10:17] LABS: U HYALINE CASTS AUWI 0-2 /[LPF]; URINE BACTERIA AUWI NEG (NEGATIVE); URINE SQUAMOUS EPITHELIAL CELL NONE SEEN /[HPF]
[2017-03-24 03:48] LABS: BASOPHIL# 0.1 X10e3 (0-0.3); BASOPHIL% 1.2 % (0-2.5); DIFF IND NO; EOSINOPHIL# 0.1 X10e3 (0-0.7); EOSINOPHIL% 0.9 % (0.0-7.0); HEMATOCRIT 37.8 % (38.0-50.0); HEMOGLOBIN 12.5 gm/dL (13.0-16.0); LYMPHOCYTE# 1.6 X10e3 (1.0-3.5); LYMPHOCYTE% 21.3 % (17.0-45.0); MEAN CELL VOLUME 90.4 FL (83-96); MEAN CORPUSCULAR HEMOGLOBIN 29.9 PG (28-34); MEAN CORPUSCULAR HGB CONC 33.1 g/dL (30-36); MEAN PLATELET VOLUME 6.7 FL (6.5-11.5); MONOCYTE# 0.9 X10e3 (0-1.0); MONOCYTE% 12.6 % (3.0-12.0); NEUTROPHIL# 4.7 X10e3 (1.5-7.1); PLATELET COUNT 288 X10e3 (140-420); RED BLOOD COUNT 4.18 X10e (3.90-5.60); RED CELL DISTRIBUTION WIDTH 14.6 % (11.0-15.5); WHITE BLOOD COUNT 7.4 X10e3 (4.0-10.5)
[2017-03-24 04:20] LABS: BILIRUBIN,TOTAL 1.4 mg/dL (0.2-2.0); CALCIUM SERUM 8.3 mg/dL (8.4-10.2); GLOM FILT RATE Estimated 86.2 mL/min (>60); POTASSIUM 4.1 mmol/L (3.5-5.1)
[2017-03-24 08:48] LABS: CHOLESTEROL 146 mg/dL (0-200); HDL CHOLESTEROL 21 mg/dL (29-75); LDL CHOLESTEROL 94 mg/dL (-130); LDL/HDL RATIO 4 RATIO (0-4); TRIGLYCERIDES 153 mg/dL (10-160)
[2017-03-24 09:04] LABS: ARTERIAL BLD GAS O2 SATURATION 96.8 % (90.0-100.0); ARTERIAL BLOOD GAS CARBOXY HB 0.7 %sat (0.0-9.0); ARTERIAL BLOOD GAS PCO2 33.6 mmHg (35.0-45.0); ARTERIAL BLOOD GAS PO2 78.8 mmHg (80.0-100)
[2017-03-24 09:05] LABS: ARTERIAL BLOOD GAS ALLEN TEST NORMAL; ARTERIAL BLOOD GAS ART SITE LEFT RADIAL; ARTERIAL BLOOD GAS MET HB 0.6 %sat (0.0-2.0); ARTERIAL DRAW? YES
[2017-03-25 08:42] LABS: ARTERIAL BLD GAS O2 SATURATION 95.5 % (90.0-100.0); ARTERIAL BLOOD GAS ALLEN TEST NORMAL; ARTERIAL BLOOD GAS ART SITE LEFT RADIAL; ARTERIAL BLOOD GAS CARBOXY HB 0.8 %sat (0.0-9.0); ARTERIAL BLOOD GAS HCO3 24.8 mmol/L; ARTERIAL BLOOD GAS MET HB 0.8 %sat (0.0-2.0); ARTERIAL BLOOD GAS PCO2 32.3 mmHg (35.0-45.0); ARTERIAL BLOOD GAS PO2 70.6 mmHg (80.0-100); ARTERIAL BLOOD GAS pH 7.494 (7.350-7.450); ARTERIAL DRAW? YES
[2017-03-25 10:38] LABS: BASOPHIL# 0.1 X10e3 (0-0.3); BASOPHIL% 1.2 % (0-2.5); EOSINOPHIL% 0.4 % (0.0-7.0); HEMATOCRIT 45.1 % (38.0-50.0); LYMPHOCYTE# 1.4 X10e3 (1.0-3.5); LYMPHOCYTE% 14.2 % (17.0-45.0); MEAN CELL VOLUME 89.5 FL (83-96); MEAN CORPUSCULAR HEMOGLOBIN 29.7 PG (28-34); MEAN CORPUSCULAR HGB CONC 33.2 g/dL (30-36); MEAN PLATELET VOLUME 6.8 FL (6.5-11.5); MONOCYTE# 1.3 X10e3 (0-1.0); MONOCYTE% 13.2 % (3.0-12.0); NEUTROPHIL# 7.2 X10e3 (1.5-7.1); PLATELET COUNT 333 X10e3 (140-420); RED BLOOD COUNT 5.04 X10e (3.90-5.60); RED CELL DISTRIBUTION WIDTH 14.3 % (11.0-15.5); WHITE BLOOD COUNT 10.1 X10e3 (4.0-10.5)
[2017-03-25 10:44] LABS: DIFF IND NO
[2017-03-25 11:13] LABS: ALBUMIN SERUM 3.4 g/dL (3.5-5.0); BILIRUBIN,TOTAL 1.1 mg/dL (0.2-2.0); BUN/CREATININE RATIO 6.25; CALCIUM SERUM 9.3 mg/dL (8.4-10.2); CREATININE SERUM 0.8 mg/dL (0.6-1.4); GLOM FILT RATE Estimated 102.7 mL/min (>60); POTASSIUM 3.4 mmol/L (3.5-5.1); PROTEIN TOTAL SERUM 6.8 g/dL (6.0-8.3)
[2017-03-26 06:28] LABS: BASOPHIL# 0.1 X10e3 (0-0.3); BASOPHIL% 0.9 % (0-2.5); EOSINOPHIL# 0.1 X10e3 (0-0.7); EOSINOPHIL% 1.4 % (0.0-7.0); HEMATOCRIT 46.3 % (38.0-50.0); HEMOGLOBIN 15.4 gm/dL (13.0-16.0); LYMPHOCYTE# 1.9 X10e3 (1.0-3.5); LYMPHOCYTE% 19.8 % (17.0-45.0); MEAN CELL VOLUME 89.6 FL (83-96); MEAN CORPUSCULAR HEMOGLOBIN 29.7 PG (28-34); MEAN CORPUSCULAR HGB CONC 33.2 g/dL (30-36); MONOCYTE# 1.5 X10e3 (0-1.0); MONOCYTE% 15.8 % (3.0-12.0); NEUTROPHIL# 5.8 X10e3 (1.5-7.1); NEUTROPHIL% 62.1 % (40-75); PLATELET COUNT 332 X10e3 (140-420); RED BLOOD COUNT 5.17 X10e (3.90-5.60); RED CELL DISTRIBUTION WIDTH 14.6 % (11.0-15.5); WHITE BLOOD COUNT 9.4 X10e3 (4.0-10.5)
[2017-03-26 06:54] LABS: DIFF IND NO
[2017-03-26 09:24] LABS: ALBUMIN SERUM 3.7 g/dL (3.5-5.0); BILIRUBIN,TOTAL 0.7 mg/dL (0.2-2.0); BUN/CREATININE RATIO 7.77; CALCIUM SERUM 9.4 mg/dL (8.4-10.2); CREATININE SERUM 0.9 mg/dL (0.6-1.4); GLOM FILT RATE Estimated 97.9 mL/min (>60); POTASSIUM 3.9 mmol/L (3.5-5.1); PROTEIN TOTAL SERUM 7.8 g/dL (6.0-8.3)
[2017-03-27 04:28] LABS: BASOPHIL# 0.1 X10e3 (0-0.3); BASOPHIL% 1.3 % (0-2.5); DIFF IND NO; EOSINOPHIL# 0.2 X10e3 (0-0.7); EOSINOPHIL% 2.1 % (0.0-7.0); HEMOGLOBIN 15.1 gm/dL (13.0-16.0); LYMPHOCYTE# 2.1 X10e3 (1.0-3.5); MEAN CELL VOLUME 89.2 FL (83-96); MEAN CORPUSCULAR HEMOGLOBIN 29.9 PG (28-34); MEAN CORPUSCULAR HGB CONC 33.5 g/dL (30-36); MEAN PLATELET VOLUME 6.7 FL (6.5-11.5); MONOCYTE# 1.4 X10e3 (0-1.0); MONOCYTE% 14.1 % (3.0-12.0); NEUTROPHIL# 6.1 X10e3 (1.5-7.1); NEUTROPHIL% 61.5 % (40-75); PLATELET COUNT 328 X10e3 (140-420); RED BLOOD COUNT 5.05 X10e (3.90-5.60); WHITE BLOOD COUNT 9.9 X10e3 (4.0-10.5)
[2017-03-27 04:57] LABS: ALBUMIN SERUM 3.4 g/dL (3.5-5.0); BILIRUBIN,TOTAL 0.8 mg/dL (0.2-2.0); GLOM FILT RATE Estimated 86.2 mL/min (>60); POTASSIUM 3.9 mmol/L (3.5-5.1); PROTEIN TOTAL SERUM 7.2 g/dL (6.0-8.3)
[2017-03-27 05:06] LABS: ARTERIAL BLOOD GAS ALLEN TEST NORMAL; ARTERIAL BLOOD GAS ART SITE LEFT RADIAL; ARTERIAL BLOOD GAS CARBOXY HB 0.4 %sat (0.0-9.0); ARTERIAL BLOOD GAS DELIVERY ROOM AIR; ARTERIAL BLOOD GAS HCO3 23.8 mmol/L; ARTERIAL BLOOD GAS MET HB 0.5 %sat (0.0-2.0); ARTERIAL BLOOD GAS PCO2 32.2 mmHg (35.0-45.0); ARTERIAL BLOOD GAS PO2 78.3 mmHg (80.0-100); ARTERIAL BLOOD GAS pH 7.477 (7.350-7.450); ARTERIAL DRAW? YES
[2017-03-28 04:30] LABS: BASOPHIL# 0.1 X10e3 (0-0.3); BASOPHIL% 1.2 % (0-2.5); EOSINOPHIL# 0.5 X10e3 (0-0.7); EOSINOPHIL% 4.6 % (0.0-7.0); HEMATOCRIT 42.6 % (38.0-50.0); LYMPHOCYTE% 19.6 % (17.0-45.0); MEAN CELL VOLUME 90.3 FL (83-96); MEAN CORPUSCULAR HEMOGLOBIN 29.6 PG (28-34); MEAN CORPUSCULAR HGB CONC 32.7 g/dL (30-36); MEAN PLATELET VOLUME 6.8 FL (6.5-11.5); MONOCYTE# 1.5 X10e3 (0-1.0); MONOCYTE% 14.4 % (3.0-12.0); NEUTROPHIL# 6.1 X10e3 (1.5-7.1); NEUTROPHIL% 60.2 % (40-75); PLATELET COUNT 310 X10e3 (140-420); RED BLOOD COUNT 4.72 X10e (3.90-5.60); RED CELL DISTRIBUTION WIDTH 15.3 % (11.0-15.5); WHITE BLOOD COUNT 10.2 X10e3 (4.0-10.5)
[2017-03-28 04:35] LABS: DIFF IND NO
[2017-03-28 05:00] LABS: ALBUMIN SERUM 3.2 g/dL (3.5-5.0); BILIRUBIN,TOTAL 0.9 mg/dL (0.2-2.0); BUN/CREATININE RATIO 16.66; CALCIUM SERUM 8.9 mg/dL (8.4-10.2); CREATININE SERUM 0.9 mg/dL (0.6-1.4); GLOM FILT RATE Estimated 97.9 mL/min (>60); PROTEIN TOTAL SERUM 6.8 g/dL (6.0-8.3)
[2017-03-28 05:01] LABS: ARTERIAL BLD GAS O2 SATURATION 98.1 % (90.0-100.0); ARTERIAL BLOOD GAS ALLEN TEST NORMAL; ARTERIAL BLOOD GAS ART SITE LEFT RADIAL; ARTERIAL BLOOD GAS CARBOXY HB 0.5 %sat (0.0-9.0); ARTERIAL BLOOD GAS HCO3 23.1 mmol/L; ARTERIAL BLOOD GAS MET HB 0.6 %sat (0.0-2.0); ARTERIAL BLOOD GAS PCO2 32.4 mmHg (35.0-45.0); ARTERIAL BLOOD GAS PO2 93.6 mmHg (80.0-100); ARTERIAL BLOOD GAS pH 7.461 (7.350-7.450); ARTERIAL DRAW? YES
[2017-03-28 05:02] LABS: ARTERIAL BLOOD GAS DELIVERY ROOM AIR
[2017-03-30 05:46] LABS: HEMATOCRIT 44.9 % (38.0-50.0); HEMOGLOBIN 14.9 gm/dL (13.0-16.0); MEAN CELL VOLUME 89.6 FL (83-96); MEAN CORPUSCULAR HEMOGLOBIN 29.7 PG (28-34); MEAN CORPUSCULAR HGB CONC 33.2 g/dL (30-36); MEAN PLATELET VOLUME 6.7 FL (6.5-11.5); RED BLOOD COUNT 5.01 X10e (3.90-5.60); RED CELL DISTRIBUTION WIDTH 15.1 % (11.0-15.5); WHITE BLOOD COUNT 10.1 X10e3 (4.0-10.5)
[2017-03-30 06:31] LABS: BUN/CREATININE RATIO 18.88; CALCIUM SERUM 9.4 mg/dL (8.4-10.2); CREATININE SERUM 0.9 mg/dL (0.6-1.4); GLOM FILT RATE Estimated 97.9 mL/min (>60)
[2017-03-31 07:30] LABS: BUN/CREATININE RATIO 21.25; CALCIUM SERUM 9.4 mg/dL (8.4-10.2); CREATININE SERUM 0.8 mg/dL (0.6-1.4); GLOM FILT RATE Estimated 102.7 mL/min (>60); POTASSIUM 3.9 mmol/L (3.5-5.1)
[2017-04-01 06:22] LABS: HEMATOCRIT 46.5 % (38.0-50.0); HEMOGLOBIN 15.4 gm/dL (13.0-16.0); MEAN CELL VOLUME 89.7 FL (83-96); MEAN CORPUSCULAR HEMOGLOBIN 29.7 PG (28-34); MEAN CORPUSCULAR HGB CONC 33.1 g/dL (30-36); MEAN PLATELET VOLUME 7.1 FL (6.5-11.5); RED BLOOD COUNT 5.18 X10e (3.90-5.60); RED CELL DISTRIBUTION WIDTH 14.9 % (11.0-15.5); WHITE BLOOD COUNT 11.4 X10e3 (4.0-10.5)
[2017-04-01 07:03] LABS: BUN/CREATININE RATIO 22.5; CALCIUM SERUM 9.6 mg/dL (8.4-10.2); CREATININE SERUM 0.8 mg/dL (0.6-1.4); GLOM FILT RATE Estimated 102.7 mL/min (>60); POTASSIUM 3.9 mmol/L (3.5-5.1)
== END 2017-04-02 02:36 | DRG 917 ==
LOC: CED 00:36 → C3A PCU 05:17 → CEDOF 05:17 → CED 05:32 → CICCU2 07:20 → CEDOF 07:20 → C3A PCU 03-28 15:38
PROVIDERS: Hospitalist; Internal Medicine; Internal Medicine Cardiovascular Disease; Internal Medicine Nephrology; Internal Medicine Pulmonary Disease; Physician Assistant Medical; Psychiatry & Neurology Neurology; Student in an Organized Health Care Education/Training Program
PROC: 0DH67UZ Insertion of Feeding Device into Stomach, Via Natural or Artificial Opening (ICD-10-PCS; 2017-03-24)
PROC: 0W9B30Z Drainage of Left Pleural Cavity with Drainage Device, Percutaneous Approach (ICD-10-PCS; principal; 2017-03-27)
DX: T50.901A Poisoning by unspecified drugs, medicaments and biological substances, accidental (unintentional), initial encounter (principal); G92 Toxic encephalopathy; J69.0 Pneumonitis due to inhalation of food and vomit; N17.9 Acute kidney failure, unspecified; E46 Unspecified protein-calorie malnutrition; R13.12 Dysphagia, oropharyngeal phase; M62.82 Rhabdomyolysis; F33.2 Major depressive disorder, recurrent severe without psychotic features; F11.20 Opioid dependence, uncomplicated; I47.1 Supraventricular tachycardia; J93.9 Pneumothorax, unspecified; J44.9 Chronic obstructive pulmonary disease, unspecified; M54.9 Dorsalgia, unspecified; F17.210 Nicotine dependence, cigarettes, uncomplicated; I10 Essential (primary) hypertension; R19.7 Diarrhea, unspecified; M48.00 Spinal stenosis, site unspecified; Z86.14 Personal history of Methicillin resistant Staphylococcus aureus infection; E16.2 Hypoglycemia, unspecified; E87.6 Hypokalemia; E88.09 Other disorders of plasma-protein metabolism, not elsewhere classified; R00.1 Bradycardia, unspecified; F29 Unspecified psychosis not due to a substance or known physiological condition; M54.5 Low back pain; G89.29 Other chronic pain; Z71.51 Drug abuse counseling and surveillance of drug abuser
CPT/HCPCS: 32551; 36415; 36600; 51702; 70450; 70551; 71010; 71020; 72148; 74000; 74176; 74230; 80048; 80053; 80061; 80076; 80307; 81003; 82140; 82274; 82308; 82550; 82553; 82607; 82693; 82746; 82803; 82947; 83605; 83690; 83735; 83880; 84439; 84443; 84484; 84600; 85025; 85027; 85610; 85730; 86850; 86900; 86901; 87040; 87086; 92526; 92610; 92611; 93005; 95816; 96361; 96374; 96375; 96376; 97110; 97112; 97116; 97163; 97167; 97530; 97535; 99291; C1729; C9113; G0480; G8978-GP; G8979-GP; G8980-GP; G8987-GO; G8988-GO; G8996-GN; G8997-GN; G8998-GN; J1265; J1630; J1650; J2060; J2405; J2543; J3010; J3370